=== PATIENT | female | born 1950 | race Caucasian/White ===

== ENCOUNTER 2016-07-07 09:53 | Outpatient (CLI) | payer OTHER | END 2016-07-07 09:54 | disposition home or self-care (01) | DX: E11.65 Type 2 diabetes mellitus with hyperglycemia (principal); Z79.899 Other long term (current) drug therapy ==

== ENCOUNTER 2016-09-09 10:37 | Outpatient (CLI) | payer OTHER | END 2016-09-09 10:38 | disposition home or self-care (01) | DX: Z12.31 Encounter for screening mammogram for malignant neoplasm of breast (principal); Z80.3 Family history of malignant neoplasm of breast ==

== ENCOUNTER 2016-10-19 10:24 | Outpatient (CLI) | payer OTHER ==
[2016-10-19 13:32] LABS: HEMOGLOBIN A1C 0.95 g/dL
== END 2016-10-19 10:25 | disposition home or self-care (01) ==
LOC: LAB.N 10:24
PROVIDERS: ATTEND Physician Assistant Medical
DX: E11.65 Type 2 diabetes mellitus with hyperglycemia (principal); Z79.899 Other long term (current) drug therapy
CPT/HCPCS: 36415; 82947; 83036

== ENCOUNTER 2016-10-28 14:57 | Outpatient (CLI) | payer OTHER ==
[2016-10-28 18:57] LABS: BASOPHILS % (AUTO) 0.4 %; EOSINOPHILS # (AUTO) 0.3 10^3/uL (0.0-0.7); EOSINOPHILS % (AUTO) 3.5 %; HCT - HEMATOCRIT 38.5 % (37.0-47.0); HGB - HEMOGLOBIN 12.9 g/dL (12.0-16.0); LYMPHOCYTES # (AUTO) 3.2 10^3/uL (1.5-3.5); LYMPHOCYTES % (AUTO) 37.9 %; MEAN CORPUSCULAR HEMOGLOBIN 26.8 pg (27.0-31.0); MEAN CORPUSCULAR HGB CONC 33.6 g/dL (32.0-36.0); MEAN PLATELET VOLUME 9.7 fL (7.9-10.8); MONOCYTES # (AUTO) 0.5 10^3/uL (0.0-1.0); NEUTROPHILS # (AUTO) 4.5 10^3/uL (1.5-6.6); NEUTROPHILS % (AUTO) 52.2 %; RED BLOOD COUNT 4.81 10^6/uL (4.20-5.40); UNCORRECTED WHITE BLOOD COUNT 8.6 x10^3/uL; WHITE BLOOD COUNT 8.6 x10^3/uL (4.8-10.8)
[2016-10-28 19:17] LABS: BILIRUBIN,DIRECT 0.1 mg/dL (0.1-0.5); BILIRUBIN,TOTAL 1.1 mg/dL (0.2-1.0); CALCIUM 9.9 mg/dL (8.5-10.3); CREATININE 0.8 mg/dL (0.4-1.0); POTASSIUM 3.6 mmol/L (3.5-5.0); TOTAL PROTEIN 7.7 g/dL (6.7-8.2)
== END 2016-10-28 14:58 | disposition home or self-care (01) ==
LOC: LAB.N 14:57
PROVIDERS: ATTEND Podiatrist
DX: B35.1 Tinea unguium (principal)
CPT/HCPCS: 36415; 80048; 80076; 85025

== ENCOUNTER 2016-10-28 16:14 | Outpatient (CLI) | payer OTHER ==
--- NOTE | 2016-10-29 10:10 | XRAY Report ---
THREE VIEW LEFT SHOULDER: 10/28/2016 CLINICAL INDICATION: Pain. FINDINGS: AP, oblique, and scapular Y views of the left shoulder demonstrate moderate degenerative c hanges of the glenohumeral and acromioclavicular joints. There is no evidence of fracture or dislocat ion. No radiopaque foreign body is seen in the soft tissues. IMPRESSION: MODERATE OSTEOARTHRITIS. JOB #: [id number] EXT JOB #:[id number]
== END 2016-10-28 16:15 | disposition home or self-care (01) ==
LOC: DI 16:14
PROVIDERS: ATTEND Physician Assistant Medical
DX: M19.012 Primary osteoarthritis, left shoulder (principal)
CPT/HCPCS: 36415; 80048; 80076; 85025

== ENCOUNTER 2016-12-21 10:41 | Outpatient (CLI) | payer OTHER ==
[2016-12-21 13:11] LABS: BASOPHILS % (AUTO) 0.5 %; EOSINOPHILS # (AUTO) 0.3 10^3/uL (0.0-0.7); EOSINOPHILS % (AUTO) 3.3 %; HCT - HEMATOCRIT 41.8 % (37.0-47.0); HGB - HEMOGLOBIN 13.7 g/dL (12.0-16.0); LYMPHOCYTES # (AUTO) 2.5 10^3/uL (1.5-3.5); LYMPHOCYTES % (AUTO) 29.9 %; MEAN CORPUSCULAR HEMOGLOBIN 26.3 pg (27.0-31.0); MEAN CORPUSCULAR HGB CONC 32.8 g/dL (32.0-36.0); MEAN CORPUSCULAR VOLUME 80.3 fL (81.0-99.0); MEAN PLATELET VOLUME 9.8 fL (7.9-10.8); MONOCYTES # (AUTO) 0.4 10^3/uL (0.0-1.0); MONOCYTES % (AUTO) 4.9 %; NEUTROPHILS # (AUTO) 5.1 10^3/uL (1.5-6.6); NEUTROPHILS % (AUTO) 61.4 %; RED BLOOD COUNT 5.21 10^6/uL (4.20-5.40); RED CELL DISTRIBUTION WIDTH 15.9 % (12.0-15.0); UNCORRECTED WHITE BLOOD COUNT 8.3 x10^3/uL; WHITE BLOOD COUNT 8.3 x10^3/uL (4.8-10.8)
[2016-12-21 13:24] LABS: BUN - BLOOD UREA NITROGEN 18 mg/dL (6-20); CALCIUM 9.5 mg/dL (8.5-10.3); CARBON DIOXIDE - CO2 27 mmol/L (21-32); CHLORIDE 100 mmol/L (101-111); CREATININE 0.7 mg/dL (0.4-1.0); GFR - MDRD 84 (>89); GLUCOSE 267 mg/dL (70-100); POTASSIUM 4.1 mmol/L (3.5-5.0); SODIUM 136 mmol/L (135-145); TOTAL PROTEIN 7.4 g/dL (6.7-8.2)
[2016-12-21 13:29] LABS: BILIRUBIN,DIRECT < 0.1 mg/dL (0.1-0.5)
== END 2016-12-21 10:42 | disposition home or self-care (01) ==
LOC: LAB.N 10:41
PROVIDERS: ATTEND Podiatrist
DX: B35.1 Tinea unguium (principal)
CPT/HCPCS: 36415; 80048; 80076; 85025

== ENCOUNTER 2017-01-12 09:54 | Outpatient (CLI) | payer OTHER ==
[2017-01-12 13:12] LABS: BASOPHILS % (AUTO) 0.2 %; EOSINOPHILS # (AUTO) 0.3 10^3/uL (0.0-0.7); EOSINOPHILS % (AUTO) 3.4 %; HCT - HEMATOCRIT 41.6 % (37.0-47.0); HGB - HEMOGLOBIN 13.7 g/dL (12.0-16.0); LYMPHOCYTES # (AUTO) 3.2 10^3/uL (1.5-3.5); LYMPHOCYTES % (AUTO) 38.3 %; MEAN CORPUSCULAR HEMOGLOBIN 26.4 pg (27.0-31.0); MEAN CORPUSCULAR HGB CONC 32.9 g/dL (32.0-36.0); MEAN CORPUSCULAR VOLUME 80.3 fL (81.0-99.0); MONOCYTES # (AUTO) 0.4 10^3/uL (0.0-1.0); NEUTROPHILS # (AUTO) 4.4 10^3/uL (1.5-6.6); NEUTROPHILS % (AUTO) 53.1 %; NUCLEATED RED BLOOD CELLS AUTO 0.1 /100WBC; RED BLOOD COUNT 5.17 10^6/uL (4.20-5.40); RED CELL DISTRIBUTION WIDTH 15.6 % (12.0-15.0); UNCORRECTED WHITE BLOOD COUNT 8.3 x10^3/uL; WHITE BLOOD COUNT 8.3 x10^3/uL (4.8-10.8)
[2017-01-12 13:40] LABS: HEMOGLOBIN A1C 1.09 g/dL
[2017-01-12 13:57] LABS: ALBUMIN/GLOBULIN RATIO 1.1 (1.0-2.2); BILIRUBIN,TOTAL 0.8 mg/dL (0.2-1.0); BUN - BLOOD UREA NITROGEN 18 mg/dL (6-20); CALCIUM 9.4 mg/dL (8.5-10.3); CARBON DIOXIDE - CO2 27 mmol/L (21-32); CHLORIDE 101 mmol/L (101-111); CHOL/HDL RATIO 4.2 (<4.4); CHOLESTEROL 160 mg/dL; CREATININE 0.7 mg/dL (0.4-1.0); GFR - MDRD 84 (>89); GLUCOSE 208 mg/dL (70-100); HDL CHOLESTEROL 38 mg/dL; LDL/HDL RATIO 2.4 (<4.4); POTASSIUM 3.9 mmol/L (3.5-5.0); SODIUM 137 mmol/L (135-145); TOTAL PROTEIN 7.6 g/dL (6.7-8.2); TRIGLYCERIDES 162 mg/dL; VLDL CHOLESTEROL 32 mg/dL
== END 2017-01-12 09:55 | disposition home or self-care (01) ==
LOC: LAB.N 09:54
PROVIDERS: ATTEND Physician Assistant Medical
DX: E11.65 Type 2 diabetes mellitus with hyperglycemia (principal); Z72.89 Other problems related to lifestyle; E03.9 Hypothyroidism, unspecified; E78.2 Mixed hyperlipidemia; Z11.59 Encounter for screening for other viral diseases; Z79.899 Other long term (current) drug therapy
CPT/HCPCS: 36415; 80053; 80061; 83036; 84443; 85025; 86803

== ENCOUNTER 2017-03-04 08:00 | Outpatient (CLI) | payer OTHER | END 2017-03-04 08:01 | disposition home or self-care (01) | LOC: LAB.N 08:00 | PROVIDERS: ATTEND Physician Assistant Medical | DX: E03.9 Hypothyroidism, unspecified (principal); Z79.899 Other long term (current) drug therapy | CPT/HCPCS: 36415; 84443 ==

== ENCOUNTER 2017-04-27 08:00 | Outpatient (CLI) | payer OTHER ==
[2017-04-27 20:13] LABS: HEMOGLOBIN A1C 0.76 g/dL
== END 2017-04-27 08:01 | disposition home or self-care (01) ==
LOC: LAB.N 08:00
PROVIDERS: ATTEND Physician Assistant Medical
DX: E11.65 Type 2 diabetes mellitus with hyperglycemia (principal); Z79.899 Other long term (current) drug therapy; E03.9 Hypothyroidism, unspecified
CPT/HCPCS: 36415; 82947; 83036; 84443

== ENCOUNTER 2017-06-18 23:58 | Outpatient (CLI) | payer MEDICARE | END 2017-06-18 23:59 | disposition EMS.NT | LOC: EMS 23:58 | PROVIDERS: ATTEND Surgery | DX: R04.0 Epistaxis (principal) ==

== ENCOUNTER 2017-06-19 01:01 | Emergency (ER) | payer MEDICARE, OTHER ==
[2017-06-19] MEDS ORDERED: TRANEXAMIC ACID 1,000 MG/10 ML VIAL NAS STA (01:15)
[2017-06-19] MEDS ORDERED: OXYMETAZOLINE NASAL SPRAY NAS STA (01:15)
[2017-06-19] MEDS ORDERED: BACITRACIN OINT TOP STA (02:11)
--- NOTE | 2017-06-19 02:12 | ED Physician Documentation ---
PD HPI HEENT - Stated complaint Stated Complaint: NOSEBLEED - Chief complaint Chief Complaint: Heent - History obtained from History obtained from: Patient - History of Present Illness Timing - onset: Today Timing - details: Abrupt onset Location: Nose Similar symptoms before: Has not had sx before Recently seen: Not recently seen - Additional information Additional information: Patient is a 67 year old female who is presenting to the emergency department for nose bleed. patient states that she was blowing her nose and it started to bleed. she applied pressure but he blood proceeded to go up and out of her left eye. patient denies being on any blood thinners or these symptoms in the past. Review of Systems Constitutional: denies: Fever Eyes: reports: Other (blood in left eye) Ears: reports: Reviewed and negative Nose: reports: Epistaxis Throat: reports: Reviewed and negative Cardiac: reports: Reviewed and negative Respiratory: reports: Reviewed and negative GI: denies: Nausea, Vomiting : denies: Hematuria Skin: reports: Reviewed and negative Musculoskeletal: reports: Reviewed and negative Neurologic: denies: Near syncope, Syncope, Altered mental status Immunocompromised: denies: Immunocompromised PD PAST MEDICAL HISTORY - Past Medical History Past Medical History: Yes Cardiovascular: Hypertension, High cholesterol Respiratory: Sleep apnea Endocrine/Autoimmune: Type 2 diabetes, HyPOthyroidism Musculoskeletal: Rheumatoid arthritis - Past Surgical History Past Surgical History: Yes General: Appendectomy Ortho: Knee replacement, 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 Tunnel 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, Hysterectomy, Oophrectomy - Present Medications Home Medications: Ambulatory Orders Medication Instructions Recorded Confirmed Atorvastatin Calcium 40 mg PO DAILY 08/27/16 03/10/17 Cinnamon Bark [Cinnamon] 500 mg PO BID 08/27/16 03/10/17 Cranberry Fruit Extract [Cran-Max] 500 mg PO DAILY 08/27/16 03/10/17 Glipizide 5 mg PO BIDWM 08/27/16 03/10/17 Hydraplenish With Msm 1 tab PO BID 08/27/16 03/10/17 Levothyroxine Sodium [Synthroid] 200 mcg PO DAILY 08/27/16 03/10/17 Licorice Root 450 mg PO DAILY 08/27/16 03/10/17 Losartan [Cozaar] 50 mg PO BID 08/27/16 03/10/17 Lysiine 500 mg PO BID 08/27/16 03/10/17 Malic Acid 1 tab PO BID 08/27/16 03/10/17 Metformin HCl 850 mg PO TID 08/27/16 03/10/17 Methylsulfonylmethane [MSM] 1,000 mg PO BID 08/27/16 03/10/17 Microlactin 240 mg PO DAILY 08/27/16 03/10/17 [place]-3/Dha/Epa/Fish Oil [Fish Oil 1 each PO BID 08/27/16 03/10/17 1,000 mg Softgel] [place] Jelly 1,000 mg PO BID 08/27/16 Ubidecarenone [Co Q-10] 120 mg PO DAILY 08/27/16 08/27/16 amLODIPine [Norvasc] 5 mg PO DAILY 08/27/16 03/10/17 hydroCHLOROthiazide [Hydrodiuril] 25 mg PO DAILY 08/27/16 03/10/17 Insulin NPH Human Isophane 37 unit SQ QPM 10/07/16 03/10/17 [Humulin N] - Allergies Allergies/Adverse Reactions: Allergies Allergy/AdvReac Type Severity Reaction Status Date / Time amoxicillin Allergy Intermediate Rash Verified 06/19/17 01:12 clindamycin Allergy Intermediate Rash Verified 06/19/17 01:11 erythromycin base Allergy Intermediate Rash Verified 06/19/17 01:11 - Social History Does the pt smoke?: No Smoking Status: Never smoker Does the pt drink ETOH?: Yes Does the pt have substance abuse?: No - Immunizations Immunizations are current?: Yes - POLST Patient has POLST: No PD ED PE NORMAL - Vitals Vital signs reviewed: Yes - General General: Alert and oriented X 3, No acute distress - HEENT HEENT: Atraumatic, PERRL, Moist mucous membranes - Neck Neck: Supple, no meningeal sign - Cardiac Cardiac: RRR, No murmur - Respiratory Respiratory: No respiratory distress - Abdomen Abdomen: Soft - Derm Derm: Normal color, No rash - Extremities Extremities: No deformity - Neuro Neuro: Alert and oriented X 3, No motor deficit, Normal speech - Psych Psych: Normal mood PD ED PE EXPANDED - HEENT HEENT: Left nares epistaxis (polyp in left nare, evidence of bleeding but now stopped) Results - Vitals Vitals: Vital Signs - 24 hr 06/19/17 01:07 Temperature 63.1 C H Heart Rate 99 Respiratory 20 Rate Blood Pressure 176/80 H O2 Saturation 98 Oxygen O2 Source Room air PD MEDICAL DECISION MAKING - ED course Complexity details: reviewed old records, reviewed results, re-evaluated patient , considered differential, d/w patient, d/w family ED course: patient was seen and examined at bedside. Patient had been applying pressure. the nose clamp was removed and patient blew her nose. there was a polyp but the bleeding had stopped. AFrin was applied as well as bacitracin. Patient's bleeding was controlled and patient required no further work up and was stable for discharge with outpatient follow up. Departure - Departure Disposition: 01 Home, Self Care Clinical Impression: Epistaxis not due to trauma Condition: Good Instructions: ED Nosebleed Follow-Up: Terra Chand PA-C [Primary Care Provider] - Comments: You have a polyp in your nose which could have been the culprit for the bleed. You should keep your nares moist with vasaline or similar product. If you get bleeding again you can use afrin and apply pressure. You should follow up with your doctor if these symptoms become more frequent or last for a longer duration.
[2017-06-19 02:23] VITALS: BP 162/95
== END 2017-06-19 02:23 | disposition home or self-care (01) ==
LOC: ED 01:01
DX: R04.0 Epistaxis (principal); J33.9 Nasal polyp, unspecified; I10 Essential (primary) hypertension; E78.00 Pure hypercholesterolemia, unspecified; E03.9 Hypothyroidism, unspecified; E11.9 Type 2 diabetes mellitus without complications; Z79.4 Long term (current) use of insulin; Z96.659 Presence of unspecified artificial knee joint
CPT/HCPCS: 99282; 99283; A9270

== ENCOUNTER 2017-07-06 16:54 | Emergency (ER) | payer MEDICARE ==
--- NOTE | 2017-07-06 18:06 | ED Physician Documentation ---
History of Present Illness - Stated complaint Stated Complaint: NOSE BLEED - Chief complaint Chief Complaint: Heent - History obtained from History obtained from: Patient, Family - History of Present Illness Timing: Today, How many minutes ago (20) Pain level max: 0 Pain level now: 0 Improved by: holding pressure Worsened by: nothing - Additonal information Additional information: bleeding from L nare. Has not seen ENT yet. Seen here recently for same. Review of Systems Constitutional: denies: Fever Nose: denies: Rhinorrhea / runny nose, Congestion, Sinus pressure / pain, Foreign Body Throat: denies: Sore throat Cardiac: denies: Chest pain / pressure Respiratory: denies: Cough GI: denies: Abdominal Pain, Vomiting, Diarrhea Skin: denies: Rash PD PAST MEDICAL HISTORY - Past Medical History Cardiovascular: Hypertension, High cholesterol Respiratory: Sleep apnea Endocrine/Autoimmune: Type 2 diabetes, HyPOthyroidism Musculoskeletal: Rheumatoid arthritis - Past Surgical History Past Surgical History: Yes General: Appendectomy Ortho: Knee replacement, 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, Hysterectomy, Oophrectomy - Present Medications Home Medications: Ambulatory Orders Medication Instructions Recorded Confirmed Atorvastatin Calcium 40 mg PO DAILY 08/27/16 03/10/17 Cinnamon Bark [Cinnamon] 500 mg PO BID 08/27/16 03/10/17 Cranberry Fruit Extract [Cran-Max] 500 mg PO DAILY 08/27/16 03/10/17 Glipizide 5 mg PO BIDWM 08/27/16 03/10/17 Hydraplenish With Msm 1 tab PO BID 08/27/16 03/10/17 Levothyroxine Sodium [Synthroid] 200 mcg PO DAILY 08/27/16 03/10/17 Licorice Root 450 mg PO DAILY 08/27/16 03/10/17 Losartan [Cozaar] 50 mg PO BID 08/27/16 03/10/17 Lysiine 500 mg PO BID 08/27/16 03/10/17 Malic Acid 1 tab PO BID 08/27/16 03/10/17 Metformin HCl 850 mg PO TID 08/27/16 03/10/17 Methylsulfonylmethane [MSM] 1,000 mg PO BID 08/27/16 03/10/17 Microlactin 240 mg PO DAILY 08/27/16 03/10/17 [place]-3/Dha/Epa/Fish Oil [Fish Oil 1 each PO BID 08/27/16 03/10/17 1,000 mg Softgel] [place] Jelly 1,000 mg PO BID 08/27/16 Ubidecarenone [Co Q-10] 120 mg PO DAILY 08/27/16 08/27/16 amLODIPine [Norvasc] 5 mg PO DAILY 08/27/16 03/10/17 hydroCHLOROthiazide [Hydrodiuril] 25 mg PO DAILY 08/27/16 03/10/17 Insulin NPH Human Isophane 37 unit SQ QPM 10/07/16 03/10/17 [Humulin N] - Allergies Allergies/Adverse Reactions: Allergies Allergy/AdvReac Type Severity Reaction Status Date / Time amoxicillin Allergy Intermediate Rash Verified 07/06/17 17:01 clindamycin Allergy Intermediate Rash Verified 07/06/17 17:01 erythromycin base Allergy Intermediate Rash Verified 07/06/17 17:01 - Social History Does the pt smoke?: No Smoking Status: Never smoker Does the pt drink ETOH?: Yes Does the pt have substance abuse?: No - Immunizations Immunizations are current?: Yes - POLST Patient has POLST: No PD ED PE NORMAL - Vitals Vital signs reviewed: Yes - General General: Alert and oriented X 3, No acute distress - HEENT HEENT: Moist mucous membranes, Other (R nare slight dried blood. L nare - dried blood and clot in place. no active bleeding) - Neck Neck: Supple, no meningeal sign - Cardiac Cardiac: RRR, Strong equal pulses - Respiratory Respiratory: No respiratory distress, Clear bilaterally - Derm Derm: Warm and dry - Neuro Neuro: Alert and oriented X 3 Results - Vitals Vitals: Vital Signs - 24 hr 07/06/17 07/06/17 16:58 19:17 Temperature 36.6 C 36.5 C Heart Rate 111 H 94 Respiratory 16 18 Rate Blood Pressure 179/109 H 161/81 H O2 Saturation 97 95 Oxygen O2 Source Room air PD MEDICAL DECISION MAKING - ED course Complexity details: reviewed old records, re-evaluated patient, considered differential, d/w patient, d/w family ED course: Patient with epistaxis to the L nare. no active bleeding. Patient brought in her own afrin, 2 sprays applied. No further bleeding. Will follow up with ENT as previously planned. Patient and family counseled regarding signs and symptoms for which I believe and urgent re-evaluation would be necessary. Patient with good understanding of and agreement to plan and is comfortable going home at this time This document was made in part using voice recognition software. While efforts are made to proofread this document, sound alike and grammatical errors may occur. Departure - Departure Disposition: 01 Home, Self Care Clinical Impression: Epistaxis Condition: Good Instructions: ED Nosebleed Follow-Up: Terra Chand PA-C [Primary Care Provider] - Within 1 week Comments: Use the afrin twice daily for 2 days. Return if you worsen. Otherwise follow up with ENT as scheduled. Discharge Date/Time: 07/06/17 19:25
[2017-07-06 19:18] VITALS: BP 161/81
== END 2017-07-06 19:25 | disposition home or self-care (01) ==
LOC: ED 16:54
DX: R04.0 Epistaxis (principal); I10 Essential (primary) hypertension; E78.00 Pure hypercholesterolemia, unspecified; E03.9 Hypothyroidism, unspecified; E11.9 Type 2 diabetes mellitus without complications; Z79.4 Long term (current) use of insulin
CPT/HCPCS: 99282; 99283

== ENCOUNTER 2017-08-27 11:10 | Outpatient (CLI) | payer MEDICARE | END 2017-08-27 11:11 | disposition critical access hospital (66) | LOC: EMS 11:10 | PROVIDERS: ATTEND Surgery | DX: R47.9 Unspecified speech disturbances (principal); R53.1 Weakness | CPT/HCPCS: A0425; A0427 ==

== ENCOUNTER 2017-08-27 11:45 | Observation (INO) | payer MEDICARE ==
--- NOTE | 2017-08-27 11:46 | ED Physician Documentation ---
PD HPI FOCAL NEURO - Stated complaint Stated Complaint: POSS CVA - History obtained from History obtained from: Patient - History of Present Illness Timing - onset: Last night (went to bed around 8 pm and awoke at midnight to go to bathroom or such, noted fumbling with right hand and dribbled when she drank. Went back to bed and felt symptoms still this morning. Then noted trouble speaking when talked with family member on phone. No injury nor headache.) Timing - duration: Hours (12) Timing - details: Abrupt onset, Still present Severity of deficit: Moderate Weakness: Face, Arm, Hand, Right. No: Leg Numbness: Arm, Hand, Right. No: Leg Associated symptoms: Other (trouble articulating). No: Headache, Nausea / vomiting Contributing factors: negative: Anticoagulated, Vascular dz, Atrial fibrillation Baseline status: positive: A&OX3, ambulatory, indep Similar symptoms before: Has not had sx before Recently seen: Not recently seen Review of Systems Constitutional: denies: Fever, Chills, Myalgias Nose: denies: Rhinorrhea / runny nose, Congestion Throat: denies: Sore throat Cardiac: denies: Chest pain / pressure, Palpitations Respiratory: denies: Dyspnea, Cough GI: denies: Abdominal Pain, Abdominal Swelling, Nausea, Vomiting Skin: denies: Rash, Lesions Neurologic: reports: Focal weakness, Difficulty speaking. 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, Oophrectomy - Present Medications Home Medications: Ambulatory Orders Medication Instructions Recorded Confirmed Atorvastatin Calcium 40 mg PO QPM 08/27/16 08/27/17 Cinnamon Bark [Cinnamon] 500 mg PO DAILY 08/27/16 08/27/17 Cranberry Fruit Extract [Cran-Max] 120 mg PO DAILY 08/27/16 08/27/17 Glipizide 5 mg PO 0730 08/27/16 08/27/17 Hydraplenish With Msm 1 tab PO BID 08/27/16 08/27/17 Levothyroxine Sodium [Synthroid] 200 mcg PO MOTUWETHFR@0730 08/27/16 08/27/17 Licorice Root 450 mg PO DAILY 08/27/16 08/27/17 Lysiine 500 mg PO BID 08/27/16 08/27/17 Malic Acid 1 tab PO BID 08/27/16 08/27/17 Metformin HCl 850 mg PO TIDWM 08/27/16 08/27/17 Microlactin 240 mg PO BID 08/27/16 08/27/17 [place] Jelly 2,000 mg PO DAILY 08/27/16 08/27/17 Ubidecarenone [Co Q-10] 120 mg PO DAILY 08/27/16 08/27/17 amLODIPine [Norvasc] 5 mg PO DAILY 08/27/16 08/27/17 hydroCHLOROthiazide [Hydrodiuril] 25 mg PO DAILY 08/27/16 08/27/17 Insulin NPH Human Isophane 40 - 55 unit SQ QPM 10/07/16 08/27/17 [Humulin N] Albuterol Sulf [Ventolin Hfa 2 puffs INH Q4H PRN 08/27/17 08/27/17 Inhaler] Levothyroxine Sodium 100 mcg PO SA@0730 08/27/17 08/27/17 Losartan Potassium 100 mg PO DAILY 08/27/17 08/27/17 [place]-3 Acid Ethyl Esters [Lovaza] 1 gm PO BID 08/27/17 08/27/17 - Allergies Allergies/Adverse Reactions: Allergies Allergy/AdvReac Type Severity Reaction Status Date / Time amoxicillin Allergy Intermediate Rash Verified 08/27/17 12:01 clindamycin Allergy Intermediate Rash Verified 08/27/17 12:01 erythromycin base Allergy Intermediate Rash Verified 08/27/17 12:01 - Social History Does the pt smoke?: No Smoking Status: Never smoker Does the pt drink ETOH?: Yes Does the pt have substance abuse?: No - Family History Family history: reports: Non contributory. denies: DM, CVA - Immunizations Immunizations are current?: Yes - POLST Patient has POLST: No PD ED PE NORMAL - Vitals Vital signs reviewed: Yes - General General: Alert and oriented X 3, No acute distress, Well developed/nourished - HEENT HEENT: Pharynx benign - Neck Neck: Supple, no meningeal sign, No adenopathy - Cardiac Cardiac: RRR, No murmur - Respiratory Respiratory: Clear bilaterally - Abdomen Abdomen: Soft, Non tender - Back Back: No CVA TTP - Derm Derm: Normal color, Warm and dry - Extremities Extremities: No deformity, No tenderness to palpate, Normal ROM s pain, No edema , No calf tenderness / cord - Neuro Neuro: Alert and oriented X 3, Other (right arm with slight weakness and drift. ). No: intern brand 2-12 intact (right facial droop), Normal speech (some dyarthria but the content is normal/understandable. ) Eye Opening: Spontaneous Motor: Obeys Commands Verbal: Oriented GCS Score: 15 NIHSS - Level of Consciousness Level of consciousness: (0) Alert, Keenly responsive LOC Questions: (0) Answers both Q's correct LOC Commands: (0) Performs both correctly - Gaze Best Gaze: (0) Normal - Visual Visual: (0) No loss - Facial Palsy Facial Palsy: (1) Minor paralysis - Motor Arms (both separate) Motor Arm (right): (1) Drift Motor Arm (left): (0) No drift - Motor Legs (both separate) Motor Leg (right): (0) No drift Motor Leg (left): (0) No drift - Limb Ataxia Limb Ataxia: (0) Absent - Sensory Sensory: (0) Normal - Best Language Best Language: (0) No aphasia - Dysarthria Dysarthria: (1) [id number] dysarthria - Extinction and Inattention (formally neg Extinction and inattention: (0) No abnormality - Total Score/Results Total Score/Result: 3 Results - Vitals Vitals: Vital Signs - 24 hr 08/27/17 08/27/17 11:57 13:16 Temperature 36.6 C Heart Rate 76 81 Respiratory 21 15 Rate Blood Pressure 183/104 H 172/89 H O2 Saturation 97 95 Oxygen O2 Source Room air - Labs Labs: Laboratory Tests 08/27/17 08/27/17 12:00 12:00 WBC 7.3 RBC 5.01 Hgb 12.7 Hct 38.1 MCV 75.9 L MCH 25.2 L MCHC 33.2 RDW 16.9 H Plt Count 214 MPV 8.3 Neut # 4.9 Lymph # 1.8 [place] # 0.3 Eos # 0.2 Baso # 0.1 Absolute Nucleated RBC 0.00 Nucleated RBC % 0.0 Sodium 132 L Potassium 4.2 Chloride 94 L Carbon Dioxide 28 Anion Gap 10.0 BUN 16 Creatinine 0.7 Estimated GFR (MDRD) 84 L Glucose 311 H Calcium 9.5 Magnesium 1.9 Total Bilirubin 0.9 AST 25 ALT 34 Alkaline Phosphatase 131 H Total Protein 8.2 Albumin 4.3 Globulin 3.9 Albumin/Globulin Ratio 1.1 Lipase 18 L - Rads (name of study) head CT Radiology: Prelim report reviewed (left basal ganglia hypodensity c/w early stroke. ) PD MEDICAL DECISION MAKING - ED course Complexity details: reviewed results, re-evaluated patient, considered differential, d/w patient, d/w store sales consultant (Neurology at [facility], who said not candidate for intervention (TPA nor embolectomy). No need to transfer. ) Departure - Departure Disposition: ED Place in Observation Clinical Impression: Basal ganglia infarction Cerebrovascular accident (CVA) Qualifiers: CVA mechanism: unspecified Qualified Code(s): I63.9 - Cerebral infarction, unspecified Condition: Stable Record reviewed to determine appropriate education?: Yes Discharge Date/Time: 08/27/17 14:05
[2017-08-27] MEDS ORDERED: SODIUM CHLORIDE 0.9% 1,000 ML IV ONE (12:00)
[2017-08-27 12:07] LABS: BASOPHILS # (AUTO) 0.1 10^3/uL (0.0-0.1); BASOPHILS % (AUTO) 0.9 %; EOSINOPHILS # (AUTO) 0.2 10^3/uL (0.0-0.7); EOSINOPHILS % (AUTO) 3.2 %; HGB - HEMOGLOBIN 12.7 g/dL (12.0-16.0); LYMPHOCYTES # (AUTO) 1.8 10^3/uL (1.5-3.5); LYMPHOCYTES % (AUTO) 24.6 %; MEAN CORPUSCULAR HEMOGLOBIN 25.2 pg (27.0-31.0); MEAN CORPUSCULAR HGB CONC 33.2 g/dL (32.0-36.0); MEAN CORPUSCULAR VOLUME 75.9 fL (81.0-99.0); MEAN PLATELET VOLUME 8.3 fL (7.9-10.8); MONOCYTES # (AUTO) 0.3 10^3/uL (0.0-1.0); MONOCYTES % (AUTO) 4.6 %; NEUTROPHILS # (AUTO) 4.9 10^3/uL (1.5-6.6); NEUTROPHILS % (AUTO) 66.7 %; PLT - PLATELET COUNT 214 10^3/uL (130-450); RED BLOOD COUNT 5.01 10^6/uL (4.20-5.40); RED CELL DISTRIBUTION WIDTH 16.9 % (12.0-15.0); WHITE BLOOD COUNT 7.3 x10^3/uL (4.8-10.8)
[2017-08-27] MEDS ORDERED: IOPAMIDOL-300 100 ML VIAL ONE (12:10)
[2017-08-27 12:16] LABS: ALBUMIN 4.3 g/dL (3.2-5.5); ALBUMIN/GLOBULIN RATIO 1.1 (1.0-2.2); BILIRUBIN,TOTAL 0.9 mg/dL (0.2-1.0); CALCIUM 9.5 mg/dL (8.5-10.3); CREATININE 0.7 mg/dL (0.4-1.0); MAGNESIUM 1.9 mg/dL (1.7-2.8); TOTAL PROTEIN 8.2 g/dL (6.7-8.2)
[2017-08-27] MEDS ORDERED: ASPIRIN CHEW 81 MG TABLET PO STA (12:17)
[2017-08-27] MEDS ORDERED: IOPAMIDOL-300 100 ML VIAL IVP ONE ×2 (12:24)
--- NOTE | 2017-08-27 12:36 | CT Preliminary Report ---
Exam: CT HEAD W/O STROKE PROTOCOL IMPRESSION: Subtle hypodensity at the left basal ganglia may reflect acute infarct. MRI could be cons idered for further evaluation. Paranasal sinus disease. RADIA The call report notification system was initiated by Dr. Torito Handley at 12:28 hrs on 08/27/17. The above findings were discussed with Dr. aL by Dr. Torito Handley at 12:34 hrs on 08/27/17. SITE ID: [id number]
--- NOTE | 2017-08-27 12:36 | CT Report ---
EXAM: CT HEAD EXAM DATE: 08/27/2017 12:18 PM. CLINICAL HISTORY: Right arm/face weakness since last night. COMPARISON: None. TECHNIQUE: Multiaxial CT images were obtained from the foramen magnum to the vertex. Reformats: Coron al. IV contrast: None. In accordance with CT protocol optimization, one or more of the following dose reduction techniques w ere utilized for this exam: automated exposure control, adjustment of mA and/or KV based on patient s ize, or use of iterative reconstructive technique. FINDINGS: Parenchyma: No intraparenchymal hemorrhage. No evidence of mass or midline shift. There is subtle hyp odensity at the left basal ganglia, possibly reflecting acute lacunar infarct. Otherwise no evidence of acute infarct. [place]-white differentiation is otherwise intact. There is mild patchy periventricula r white matter hypodensity, nonspecific but suggestive of chronic microvascular ischemic change. Extraaxial Spaces: Normal for age. No subdural or epidural collections identified. Ventricles: Normal in size and position. Sinuses and Orbits: Bilateral maxillary sinus fluid levels and mild mucosal thickening. Partially opa cified ethmoid air cells. Bones: No evidence of fracture or calvarial defect. Other: None. IMPRESSION: Subtle hypodensity at the left basal ganglia may reflect acute infarct. MRI could be cons idered for further evaluation. Paranasal sinus disease. RADIA The call report notification system was initiated by Dr. Torito Handley at 12:28 hrs on 08/27/17. The above findings were discussed with Dr. La by Dr. Torito Handley at 12:34 hrs on 08/27/17. Referring Provider Line: [phone] SITE ID: [id number]
[2017-08-27] MEDS ORDERED: SODIUM CHLORIDE FLUSH 0.9% 10 ML SYRINGE IVP PRN (13:29)
--- NOTE | 2017-08-27 13:48 | CT Preliminary Report ---
Exam: CT HEAD ANGIO Impression: Unremarkable intracranial CT angiogram. In particular, no evidence of occlusion or hemodynamically significant stenosis affecting main branch es of the anterior or posterior circulations. SITE ID: [id number]
--- NOTE | 2017-08-27 14:00 | CT Preliminary Report ---
Exam: CT NECK ANGIO Impression: 1. Normal appearance of the extra cranial left carotid artery. 2. Very poor assessment of the proximal vertebral arteries and proximal right common carotid artery d ue to artifact. The possibility of stenosis cannot be excluded. However, the vertebral arteries and r ight carotid artery are much better visualized in the mid and upper neck and no pathology is demonstr ated. SITE ID: [id number]
--- NOTE | 2017-08-27 15:18 | HISTORY & PHYSICAL EXAMINATION ---
Chief Complaint - Chief Complaint Chief Complaint: right sided weakness History of Present Illness - Admitted From Admitted From:: ED - History Obtained From Records Reviewed: yes History obtained from: chart review, patient Exam Limitations: speech - History of Present Illness HPI Comment/Other: Zhen Hudson is a morbidly obese 67 year old white female with a past medical history of insulin dependent DM type 2, hypothyroidism, rheumatoid arthritis, suspected sleep apnea, hypertension, hyperlipidemia, and urinary stress incontinence. She states that she went to bed last night around 8 pm and fell asleep in the chair as she has been suffering with a URI, so lying flat is uncomfortable. She woke up at 12midnight with mild ataxia, right arm weakness, and noticed dribbling as she drank. She was home alone as her took a trip to [place] to visit family, so she ended up falling back asleep. When she awoke this AM, she felt similar symptoms, so phoned family who soon "face-timed " her. She was noted to have a right facial droop, profound expressive aphasia , and right sided weakness. Once in the ED preliminary CT stroke protocol scans showed subtle hypodensity at the left ganglia that may reflect acute infarct, MRI is recommended. This finding does coincide with clinical picture. No lab findings were found to be concerning. The patient denies chest pain, N /V, SOB, hallucinations, or vision/hearing changes. She admits to extra stress lately related to disagreements with her eldest son, but otherwise leads a low stress environment and states that she has a supportive . She will be admitted for further work up for suspected CVA to our observation. An echocardiogram, MRI stat, and telemetry monitoring will be ordered. History - Past Medical History Cardiovascular: reports: Hypertension, High cholesterol, Atrial fibrillation ( history of a-fib, now post cardiac ablation) Respiratory: reports: Sleep apnea (no offical diagnosis, but patient admits to snoring and daytime sleepiness.) Neuro: reports: None Endocrine/Autoimmune: reports: Type 2 diabetes (insulin dependent), HyPOthyroidism GI: reports: None DELICATESSEN CLERK: reports: Other (uterine bleeding- status post hysterectomy ~age 42.) : reports: Incontinence (stress) HEENT: reports: Chronic vision loss Psych: reports: Depression, Anxiety Musculoskeletal: reports: Rheumatoid arthritis Derm: reports: None MRSA Hx?: No - Past Surgical History General: reports: Appendectomy Ortho: reports: Knee replacement, Carpal Tunnel surgery /DELICATESSEN CLERK: reports: section, Hysterectomy, Oophrectomy Cardiovascular: reports: Other (cardiac ablation for chronic atrial fibrillation ) - Family & Social History Family History: Mother: , Cancer, Father: , CAD, Sister: Alive and Well, Mental Illness, Brother: , Mental Illness Family History Comment/Other: The patient's mother from breast cancer, father of heart disease, brother hung himself after him and had substance abuse issues. She has 2 living sister, one of which is well, the other with mental illness/substance abuse issues, osteoarthritis. Living arrangement: At home Living Situation: With spouse/s.o. Social History Notes: The patient is to José Antonio for the past 10 years. This is her second marriage. She has 2 grown sons and raised them in the [facility]. 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 She denies tobacco, alcohol, or illicit drug use. She wishes to be a FULL code. - Substance History Use: Uses substance without health or social issues: NONE Abuse: Recurrent use of substance despite neg consequences: NONE Dependence: Experiences withdrawal or developed tolerances: NONE - POLST Patient has POLST: No POLST Status: Full Code Meds/Allgy - Home Medications Home Medications: Ambulatory Orders Medication Instructions Recorded Confirmed Atorvastatin Calcium 40 mg PO QPM 08/27/16 08/27/17 Cinnamon Bark [Cinnamon] 500 mg PO DAILY 08/27/16 08/27/17 Cranberry Fruit Extract [Cran-Max] 120 mg PO DAILY 08/27/16 08/27/17 Glipizide 5 mg PO 0730 08/27/16 08/27/17 Hydraplenish With Msm 1 tab PO BID 08/27/16 08/27/17 Levothyroxine Sodium [Synthroid] 200 mcg PO MOTUWETHFR@0730 08/27/16 08/27/17 Licorice Root 450 mg PO DAILY 08/27/16 08/27/17 Lysiine 500 mg PO BID 08/27/16 08/27/17 Malic Acid 1 tab PO BID 08/27/16 08/27/17 Metformin HCl 850 mg PO TIDWM 08/27/16 08/27/17 Microlactin 240 mg PO BID 08/27/16 08/27/17 Almond Jelly 2,000 mg PO DAILY 08/27/16 08/27/17 Ubidecarenone [Co Q-10] 120 mg PO DAILY 08/27/16 08/27/17 amLODIPine [Norvasc] 5 mg PO DAILY 08/27/16 08/27/17 hydroCHLOROthiazide [Hydrodiuril] 25 mg PO DAILY 08/27/16 08/27/17 Insulin NPH Human Isophane 40 - 55 unit SQ QPM 10/07/16 08/27/17 [Humulin N] Albuterol Sulf [Ventolin Hfa 2 puffs INH Q4H PRN 08/27/17 08/27/17 Inhaler] Levothyroxine Sodium 100 mcg PO SA@0730 08/27/17 08/27/17 Losartan Potassium 100 mg PO DAILY 08/27/17 08/27/17 [place]-3 Acid Ethyl Esters [Lovaza] 1 gm PO BID 08/27/17 08/27/17 - Allergies Allergies/Adverse Reactions: Allergies Allergy/AdvReac Type Severity Reaction Status Date / Time amoxicillin Allergy Intermediate Rash Verified 08/27/17 12:01 clindamycin Allergy Intermediate Rash Verified 08/27/17 12:01 erythromycin base Allergy Intermediate Rash Verified 08/27/17 12:01 Review of Systems - Constitutional Constitutional: reports: Fatigue, Weakness, Poor appetite, Weight gain (15 lbs in the past several months d/t increased stress.) - Eyes Eyes: reports: Corrective lenses - Ears, Nose & Throat Ears, Nose & Throat: reports: Nasal congestion, Postnasal drainage. denies: Nasal discharge - Cardiovascular Cariovascular: reports: Orthopnea. denies: Irregular heart rate, Palpitations - Respiratory Respiratory: reports: Orthopnea. denies: Cough, Sputum production - Gastrointestinal Gastrointestinal: denies: Abdominal pain - Genitourinary Genitourinary: reports: Incontinence (stress). denies: Dysuria, Frequency - Musculoskeletal Musculoskeletal: reports: Joint swelling. denies: Muscle pain, Back pain, Muscle aches - Integumentary Integumentary: reports: Dryness. denies: Rash, Pruritis, Lesions - Neurological Neurological: reports: General weakness, Pre-existing deficit - Psychiatric Psychiatric: reports: Depression, Anxiety - Endocrine Endocrine: denies: Polyuria, Polydypsia - Hematologic/Lymphatic Hematologic/Lymphatic: reports: Recurrent infections - All Other Systems All Other Systems: reports: Reviewed and negative Exam - Vital Signs Reviewed Vital Signs: Yes Vital Signs: Vital Signs x48h Temp Pulse Resp BP Pulse Ox 08/27/17 14:30 36.9 C 81 20 211/82 H 96 - Physical Exam General Appearance: positive: No acute distress, Alert, Mild distress Eyes Bilateral: positive: Normal inspection ENT: positive: ENT inspection nml, Pharyngeal erythema, Dry mucous membranes Neck: positive: No JVD, Trachea midline Respiratory: positive: Chest non-tender, No respiratory distress, Breath sounds nml Cardiovascular: positive: Regular rate & rhythm, No gallop Peripheral Pulses: positive: 2+ Abdomen: positive: Non-tender, No organomegaly, Nml bowel sounds, Other (obese, soft) Back: positive: Nml inspection Skin: positive: No rash, Warm, Dry Extremities: positive: Non-tender, Full ROM, Nml appearance, Pedal edema (mild, BLE) Neurologic/Psychiatric: positive: Oriented x3, Weakness, Sensory loss, Facial droop, Slurred/abnml speech, Depressed mood/affect Reflexes: Bicep (R): 2+, Bicep (L): 3+, Ankle (R): 3+, Ankle (L): 3+ Conclusion/Plan - Problem List (1) Cerebrovascular accident (CVA) Conclusion/Plan: A CVA is suspected upon presentation to ED based on physical exam findings, and preliminary CT results. The patient is noted to have right sided weakness with profound expressive aphasia with an unknown "last well" time due to patient's explanation of onset of symptoms. Her recollection was that she fell asleep in her recliner, and awoke at 12midnight with her first symptoms, but fell back asleep until this AM. Plan: Admit patient to observation unit and patient will undergo usual CVA work up including a bedside echocardiogram with bubble study, MRI of brain, and PT/OT/speech with medication adjustments. Qualifiers: CVA mechanism: unspecified Qualified Code(s): I63.9 - Cerebral infarction, unspecified (2) Basal ganglia infarction Conclusion/Plan: As per CT report, the patient is noted to have an acute basal ganglia infarction. The patient has 2 prominent directly related risk factors which include potentially uncontrolled hypertension and diabetes mellitus. Plan: Continue observation work up. (3) Right sided weakness Conclusion/Plan: The patient reports mild ataxia at home that has nearly resolved upon admission exam. She is equal in strength and sensation of BLE, and only mildly deficient in RUE. She does not demonstrate drift with any extremities, but when asked to shrug shoulders, her right shoulder does not go as high as her left. Plan: Perform serial neuro checks as per protocol CVA work up and expect improvement with time. Consider PT/OT/speech. (4) Expressive aphasia Conclusion/Plan: The patient demonstrates frustration when being questioned during intake admission exam. She also is found to be tearful when speaking about her recent stress in relation to her eldest son as they are "fighting right now". She also has a mild right facial droop. When given adequate time, she comes up with correct terminology eventually. Plan: Continue to monitor and watch for potential aspiration. (5) Hypertension Conclusion/Plan: The patient has a known history of this and this is managed by PCP, Terra GARCIA. She is prescribed Losartan, amlodipin, and HCTZ at home. Patient is noted to be hypertensive upon arrival to the ED with SBP's in the 180-200's. Patient denies headaches or blurred vision. Plan: Continue to hold usual home medications as it is ideal to passively allow blood pressure to be elevated. We will continue to monitor vital signs. Qualifiers: Hypertension type: essential hypertension Qualified Code(s): I10 - Essential (primary) hypertension (6) Insulin dependent type 2 diabetes mellitus Conclusion/Plan: The patient admits to DM for the past ~20 years. She is now insulin dependent and is prescribed several agents at home including; metformin, glipizide, and NPH. She states that her sugars have been greater than 200 for quite some time due to stress and recent URI. Plan: Check HgA1C in AM and hold oral agents as per hospital protocol. Continue SSI at [facility], Lantus, and blood sugar checks. - Lab Results Lab results reviewed: Yes Fish Bones: 08/27/17 12:00 08/27/17 12:00 - Diagnostic Imaging Results Diagnostic Imaging Results: positive: Prelim report reviewed, Final report reviewed Diagnostic Imaging Results Comments: EXAM: CT HEAD EXAM DATE: 08/27/2017 12:18 PM. CLINICAL HISTORY: Right arm/face weakness since last night. COMPARISON: None. TECHNIQUE: Multiaxial CT images were obtained from the foramen magnum to the vertex. Reformats: Coronal. IV contrast: None. In accordance with CT protocol optimization, one or more of the following dose reduction techniques were utilized for this exam: automated exposure control, adjustment of mA and/or KV based on patient size, or use of iterative reconstructive technique. FINDINGS: Parenchyma: No intraparenchymal hemorrhage. No evidence of mass or midline shift. There is subtle hypodensity at the left basal ganglia, possibly reflecting acute lacunar infarct. Otherwise no evidence of acute infarct. [place]- white differentiation is otherwise intact. There is mild patchy periventricular white matter hypodensity, nonspecific but suggestive of chronic microvascular ischemic change. Extraaxial Spaces: Normal for age. No subdural or epidural collections identified. Ventricles: Normal in size and position. Sinuses and Orbits: Bilateral maxillary sinus fluid levels and mild mucosal thickening. Partially opacified ethmoid air cells. Bones: No evidence of fracture or calvarial defect. Other: None. IMPRESSION: Subtle hypodensity at the left basal ganglia may reflect acute infarct. MRI could be considered for further evaluation. Paranasal sinus disease. CT ANGIOGRAM NECK INDICATION: 67-year-old female with right face and arm weakness since last night. Concern for acute CVA. Please assess. TECHNIQUE: 80 mL of Isovue-300 contrast were injected at a rapid rate through a large bore, right antecubital intravenous catheter. The neck was scanned helically during arterial phase. Data was reconstructed into 0.5 mm axial images. In addition, MIP reconstructions have been generated in multiple projections to allow better assessment of the extracranial carotid and vertebral arteries. Significant arterial stenoses will be assessed using NASCET type measurements. In accordance with CT protocol optimization, one or more of the following dose reduction techniques were utilized for this exam: automated exposure control, adjustment of mA and/or KV based on patient size, or use of iterative reconstructive technique. COMPARISON: None. FINDINGS: There is normal branching of the aortic arch. No stenoses are identified in the first-order, supraaortic arteries. Right Carotid Artery: The proximal common carotid artery is partially obscured due to artifact from patient motion and due to beam hardening artifact from dense contrast in the right subclavian vein. The middle and distal thirds are better seen and appear widely patent. No stenosis at the carotid bifurcation. The extracranial ICA is widely patent throughout. Left Carotid Artery: Normal. Right Vertebral Artery: This is the dominant vertebral artery in this individual. The origin and proximal/mid V1 segment are partially obscured due to beam hardening artifact. Pathology is demonstrated. The V2 and V3 segments are well seen and appear patent throughout. Left Vertebral Artery: Mildly hypoplastic. The origin and proximal V1 segment are poorly assessed due to artifact. The possibility of stenosis cannot be excluded. Mid and distal V1 segment are better seen and appear patent. The V2 and V3 segments appear patent. Of note, there are numerous lymph nodes in the anterior and posterior triangles of the neck. None of these appear to meet the size criterion for malignancy and all appear well-defined and homogeneous. However, the number of lymph nodes is unusual for a patient of this age. IMPRESSION: 1. Normal appearance of the extracranial left carotid artery. 2. Very poor assessment of the proximal vertebral arteries and proximal right common carotid artery due to artifact. The possibility of stenosis cannot be excluded. However, the vertebral arteries and right carotid artery are much better visualized in the mid and upper neck and no pathology is demonstrated. CT ANGIOGRAM HEAD AND POSTCONTRAST HEAD CT INDICATION: 67-year-old female with right arm and face weakness since last night. Concern for possible CVA. Please assess. TECHNIQUE: CT Angiogram Head: 80 mL of Isovue-300 contrast were injected at a rapid rate through a large bore, right antecubital intravenous catheter. The head was scanned helically during arterial phase. Data was reconstructed into 0.5 mm axial images. In addition, MIP reconstructions have been generated in multiple projections to allow better assessment of the intracranial arteries. Postcontrast Head CT: Sequential 5 mm axial images were obtained through the brain following the CT angiogram. In accordance with CT protocol optimization, one or more of the following dose reduction techniques were utilized for this exam: automated exposure control, adjustment of mA and/or KV based on patient size, or use of iterative reconstructive technique. COMPARISON: None. FINDINGS: CT Angiogram Head: Anterior Circulation: There is calcified plaque scattered throughout the carotid siphons without significant associated ICA stenosis. No ICA aneurysm is identified. The A1 segments of the anterior cerebral arteries are codominant. No anterior communicating artery is identified. There appears to be filling of A2 and distal NESTOR branches. No obvious NESTOR branch occlusion is identified. The middle cerebral arteries are unremarkable. No aneurysm is demonstrated and there is no evidence of occlusion or hemodynamically significant stenosis affecting main branches of either middle cerebral artery. There appear to be a similar number of opacified M3 and M4 branches bilaterally. Posterior Circulation: The vertebral arteries and right PICA are widely patent. No left PICA is identified. The left PICA territory is probably supplied by the contralateral PICA or ipsilateral AICA (normal anatomical appearance). The basilar artery, superior cerebellar arteries, and main branches of the pest controller assistant appear widely patent. There appear to be tiny posterior communicating arteries bilaterally. No aneurysms are seen arising from the basilar artery trunk or apex. Postcontrast Head CT: No enhancing space-occupying mass lesion is demonstrated. There appears to be normal intravascular contrast enhancement in the dural venous sinuses and deep venous structures. Again demonstrated is paranasal sinus disease as documented on report for earlier head CT. IMPRESSION: Unremarkable intracranial CT angiogram. In particular, no evidence of occlusion or hemodynamically significant stenosis affecting main branches of the anterior or posterior circulations. - EKG Results EKG Interpreted Independently: Yes EKG Comparison: Unchanged from prior EKG EKG Findings: Sinus rhythm - Other Other Results/Comments: Echo-pending. Core Measures - Anticipated LOS I expect patient to be DC'd or transferred within 96 hours.: Yes - DVT/VTE - Prophylaxis VTE/DVT Device ordered at admit?: Yes VTE/DVT Prophylaxis med ordered at admit?: Yes - Stroke - Rehab Assessment Rehab services assessment to be ordered?: Yes - AMI - Statin at Admit Aspirin Prescribed on Admit: Yes
--- NOTE | 2017-08-27 15:27 | CT Report ---
CT ANGIOGRAM HEAD AND POSTCONTRAST HEAD CT INDICATION: 67-year-old female with right arm and face weakness since last night. Concern for possibl e CVA. Please assess. TECHNIQUE: CT Angiogram Head: 80 mL of Isovue-300 contrast were injected at a rapid rate through a large bore, right antecubital in travenous catheter. The head was scanned helically during arterial phase. Data was reconstructed into 0.5 mm axial images. In addition, MIP reconstructions have been generated in multiple projections to allow better assessment of the intracranial arteries. Postcontrast Head CT: Sequential 5 mm axial images were obtained through the brain following the CT angiogram. In accordance with CT protocol optimization, one or more of the following dose reduction techniques w ere utilized for this exam: automated exposure control, adjustment of mA and/or KV based on patient s ize, or use of iterative reconstructive technique. COMPARISON: None. FINDINGS: CT Angiogram Head: Anterior Circulation: There is calcified plaque scattered throughout the carotid siphons without significant associated ICA stenosis. No ICA aneurysm is identified. The A1 segments of the anterior cerebral arteries are codom inant. No anterior communicating artery is identified. There appears to be filling of A2 and distal A CA branches. No obvious NESTOR branch occlusion is identified. The middle cerebral arteries are unremarkable. No aneurysm is demonstrated and there is no evidence o f occlusion or hemodynamically significant stenosis affecting main branches of either middle cerebral artery. There appear to be a similar number of opacified M3 and M4 branches bilaterally. Posterior Circulation: The vertebral arteries and right PICA are widely patent. No left PICA is identified. The left PICA te rritory is probably supplied by the contralateral PICA or ipsilateral AICA (normal anatomical appeara nce). The basilar artery, superior cerebellar arteries, and main branches of the rag cutting machine feeder appear widely p atent. There appear to be tiny posterior communicating arteries bilaterally. No aneurysms are seen arising f rom the basilar artery trunk or apex. Postcontrast Head CT: No enhancing space-occupying mass lesion is demonstrated. There appears to be normal intravascular co ntrast enhancement in the dural venous sinuses and deep venous structures. Again demonstrated is paranasal sinus disease as documented on report for earlier head CT. IMPRESSION: Unremarkable intracranial CT angiogram. In particular, no evidence of occlusion or hemodynamically significant stenosis affecting main branch es of the anterior or posterior circulations. Referring Provider Line: [phone] SITE ID: [id number]
--- NOTE | 2017-08-27 15:28 | CT Report ---
CT ANGIOGRAM NECK INDICATION: 67-year-old female with right face and arm weakness since last night. Concern for acute C VA. Please assess. TECHNIQUE: 80 mL of Isovue-300 contrast were injected at a rapid rate through a large bore, right antecubital in travenous catheter. The neck was scanned helically during arterial phase. Data was reconstructed into 0.5 mm axial images. In addition, MIP reconstructions have been generated in multiple projections to allow better assessment of the extracranial carotid and vertebral arteries. Significant arterial stenoses will be assessed using NASCET type measurements. In accordance with CT protocol optimization, one or more of the following dose reduction techniques w ere utilized for this exam: automated exposure control, adjustment of mA and/or KV based on patient s ize, or use of iterative reconstructive technique. COMPARISON: None. FINDINGS: There is normal branching of the aortic arch. No stenoses are identified in the first-order, supraaor tic arteries. Right Carotid Artery: The proximal common carotid artery is partially obscured due to artifact from patient motion and due to beam hardening artifact from dense contrast in the right subclavian vein. The middle and distal th irds are better seen and appear widely patent. No stenosis at the carotid bifurcation. The extracrani al ICA is widely patent throughout. Left Carotid Artery: Normal. Right Vertebral Artery: This is the dominant vertebral artery in this individual. The origin and prox imal/mid V1 segment are partially obscured due to beam hardening artifact. Pathology is demonstrated. The V2 and V3 segments are well seen and appear patent throughout. Left Vertebral Artery: Mildly hypoplastic. The origin and proximal V1 segment are poorly assessed due to artifact. The possibility of stenosis cannot be excluded. Mid and distal V1 segment are better se en and appear patent. The V2 and V3 segments appear patent. Of note, there are numerous lymph nodes in the anterior and posterior triangles of the neck. None of these appear to meet the size criterion for malignancy and all appear well-defined and homogeneous. H owever, the number of lymph nodes is unusual for a patient of this age. IMPRESSION: 1. Normal appearance of the extracranial left carotid artery. 2. Very poor assessment of the proximal vertebral arteries and proximal right common carotid artery d ue to artifact. The possibility of stenosis cannot be excluded. However, the vertebral arteries and r ight carotid artery are much better visualized in the mid and upper neck and no pathology is demonstr ated. Referring Provider Line: [phone] SITE ID: [id number]
[2017-08-27] MEDS: SODIUM CHLORIDE FLUSH 0.9% 10 ML SYRINGE IVP SCH (16:48)
[2017-08-27] MEDS ORDERED: PHENOL THROAT SPRAY 177 ML MM PRN (17:59)
[2017-08-27] MEDS ORDERED: BENZOCAINE/MENTHOL LOZENGE MM PRN (17:59)
[2017-08-27] MEDS ORDERED: ALBUTEROL 6.7 GM INHALER INH PRN (18:51)
--- NOTE | 2017-08-27 19:01 | MRI Preliminary Report ---
Exam: MRI BRAIN W/O IMPRESSION: 1. MRI confirms findings of acute to subacute small vessel ischemic infarct in the left deep brain co rresponding to the region of abnormal hypodensity seen on CT of the head earlier today. 2. No hemorrhage. 3. Prominent findings of pansinusitis, multiple air-fluid levels suggest an acute component. [facility] SITE ID: [id number]
--- NOTE | 2017-08-27 19:25 | MRI Report ---
EXAM: MRI BRAIN WITHOUT CONTRAST EXAM DATE: 08/27/2017 06:17 PM. CLINICAL HISTORY: Clinical diagnosis of stroke with speech difficulty and acute right-sided weakness. COMPARISON: CT of the brain without contrast showing findings of left deep brain infarct performed ea tsering today at 1206 hrs. TECHNIQUE: Multiplanar, multisequence T1-weighted and fluid-sensitive MR sequences of the brain were performed. Sequences optimized for routine evaluation. Other: None. IV Contrast: None. FINDINGS: Edema is again seen similar to prior CT findings in the left deep brain as previously described, this abnormality is accompanied by restricted diffusion and is consistent with acute to subacute small ve ssel ischemic infarct in the region of the left melton radiata extending inferiorly and laterally int o the left lateral basal ganglia region. This area of infarct measures up to 2 cm AP, 1.5 cm transver se and 2.3 cm craniocaudal. No acute hemorrhage. Normal brain volume for age. No hydrocephalus, mass-effect or midline shift. Minimal additional white matter disease is present in the brain, potentially secondary to chronic edmond roangiopathy. Extensive paranasal sinus disease. Multifocal mucosal thickening. Multiple air-fluid levels. Probable empty or partially empty sella. IMPRESSION: 1.MRI confirms findings of acute to subacute small vessel ischemic infarct in the left deep brain cor responding to the region of abnormal hypodensity seen on CT of the head earlier today. 2. No hemorrhage. 3. Prominent findings of pansinusitis, multiple air-fluid levels suggest an acute component. [facility] Referring Provider Line: [phone] SITE ID: [id number]
[2017-08-27] MEDS: CLOPIDOGREL 75 MG TABLET PO SCH (19:51)
[2017-08-27] MEDS: ATORVASTATIN 40 MG TABLET PO SCH ×2 (19:51→21:26)
[2017-08-27] MEDS ORDERED: INSULIN GLARGINE 300 UNIT/3 ML PEN SUBQ SCH (21:00)
[2017-08-27] MEDS: OXYMETAZOLINE NASAL SPRAY NAS SCH (21:06)
[2017-08-27] MEDS: INSULIN ASPART 300 UNIT/3 ML PEN SUBQ SCH (21:07)
[2017-08-28 06:21] LABS: BASOPHILS # (AUTO) 0.1 10^3/uL (0.0-0.1); EOSINOPHILS # (AUTO) 0.3 10^3/uL (0.0-0.7); EOSINOPHILS % (AUTO) 3.7 %; HGB - HEMOGLOBIN 12.6 g/dL (12.0-16.0); LYMPHOCYTES # (AUTO) 3.1 10^3/uL (1.5-3.5); LYMPHOCYTES % (AUTO) 35.2 %; MEAN CORPUSCULAR HEMOGLOBIN 24.5 pg (27.0-31.0); MEAN CORPUSCULAR HGB CONC 31.9 g/dL (32.0-36.0); MEAN CORPUSCULAR VOLUME 76.9 fL (81.0-99.0); MONOCYTES # (AUTO) 0.5 10^3/uL (0.0-1.0); MONOCYTES % (AUTO) 5.3 %; NEUTROPHILS # (AUTO) 4.8 10^3/uL (1.5-6.6); NEUTROPHILS % (AUTO) 54.8 %; PLT - PLATELET COUNT 250 10^3/uL (130-450); RED BLOOD COUNT 5.16 10^6/uL (4.20-5.40); RED CELL DISTRIBUTION WIDTH 16.8 % (12.0-15.0); WHITE BLOOD COUNT 8.7 x10^3/uL (4.8-10.8)
[2017-08-28] MEDS: SODIUM CHLORIDE FLUSH 0.9% 10 ML SYRINGE IVP SCH ×2 (06:31→09:57)
[2017-08-28 06:34] LABS: ALBUMIN 4.1 g/dL (3.2-5.5); ALBUMIN/GLOBULIN RATIO 1.1 (1.0-2.2); BILIRUBIN,TOTAL 1.1 mg/dL (0.2-1.0); CALCIUM 9.2 mg/dL (8.5-10.3); CREATININE 0.6 mg/dL (0.4-1.0); MAGNESIUM 1.8 mg/dL (1.7-2.8); TOTAL PROTEIN 7.8 g/dL (6.7-8.2)
[2017-08-28 06:38] LABS: % IRON SATURATION 14 % (20-50); CHOL/HDL RATIO 6.3 (<4.4); CHOLESTEROL 219 mg/dL; HDL CHOLESTEROL 35 mg/dL; IRON 56 ug/dL (28-170); LDL CHOLESTEROL,CALCULATED 150 mg/dL; LDL/HDL RATIO 4.3 (<4.4); TOTAL IRON BINDING CAPACITY 414 ug/dL (250-450); TRANSFERRIN 296 mg/dL (192-382); VLDL CHOLESTEROL 34 mg/dL
[2017-08-28 06:54] LABS: HB2 TOTAL 14.2 g/dL; HEMOGLOBIN A1C 1.13 g/dL; HEMOGLOBIN A1C % 9.4 % (4.6-6.2)
--- NOTE | 2017-08-28 08:29 | DISCHARGE SUMMARY ---
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 Basal ganglia infarction- new on this admission, stable. ASA, increased statin dose recommended. Right sided weakness (R53.1)- improved, continued therapy. Expressive aphasia (R47.01)- improved, no confusion. Hypertension (I10)- chronic, stable. Antihypertensives held due to recent infarct. 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 - HPI History of Present Illness: Zhen Hudson is a morbidly obese 67 year old white female with a past medical history of insulin dependent DM type 2, hypothyroidism, rheumatoid arthritis, suspected sleep apnea, hypertension, hyperlipidemia, and urinary stress incontinence. She states that she went to bed last night around 8 pm and fell asleep in the chair as she has been suffering with a URI, so lying flat is uncomfortable. She woke up at 12midnight with mild ataxia, right arm weakness, and noticed dribbling as she drank. She was home alone as her took a trip to [place] to visit family, so she ended up falling back asleep. When she awoke this AM, she felt similar symptoms, so phoned family who soon "face-timed " her. She was noted to have a right facial droop, profound expressive aphasia , and right sided weakness. Once in the ED preliminary CT stroke protocol scans showed subtle hypodensity at the left ganglia that may reflect acute infarct, MRI is recommended. This finding does coincide with clinical picture. No lab findings were found to be concerning. The patient denies chest pain, N /V, SOB, hallucinations, or vision/hearing changes. She admits to extra stress lately related to disagreements with her eldest son, but otherwise leads a low stress environment and states that she has a supportive . She will be admitted for further work up for suspected CVA to our observation. An echocardiogram, MRI stat, and telemetry monitoring will be ordered. - CONSULTS | PROCEDURES Consultations: [facility] neuro-care to continue at [facility] Hospital Course: The following diagnoses were prevalent during this hospital stay: (1) Cerebrovascular accident (CVA)- A CVA is suspected upon presentation to ED based on physical exam findings, and preliminary CT results. The patient is noted to have right sided weakness with profound expressive aphasia with an unknown "last well" time due to patient's explanation of onset of symptoms. Her recollection was that she fell asleep in her recliner, and awoke at 12midnight with her first symptoms, but fell back asleep until this AM. The patient was admitted to the observation unit and patient underwent the usual CVA work up including a bedside echocardiogram with bubble study which showed no valve abnormalities, mild LV hypertrophy, and an EF of 65-70% , MRI of brain , which confirmed a basal ganglia infarction consistent with physical clinical findings. The patient did not need a physical therapy evaluation due to her being at her baseline ambulation at the time of discharge home. She may benefit from outpatient OT due to mild deficits involving right upper arm, and may also show improvement if speech therapy were utilized. The patient was recommended to stop all over the counter herbals and other medications given the recent insult that her body has been through. (2) Basal ganglia infarction- As per CT report and confirmed with a brain MRI, the patient is noted to have an acute basal ganglia infarction. The patient has 2 prominent directly related risk factors which include potentially uncontrolled hypertension and diabetes mellitus. The patient and her were provided teaching material that outlines potential symptoms from this area of brain injury and what they may expect. (3) Right sided weakness- The patient reports mild ataxia at home that thought to be resolved upon admission exam. She had equal strength and sensation of BLE , and only mildly deficient in RUE. She does not demonstrate drift with any extremities, but when asked to shrug shoulders, her right shoulder does not go as high as her left. The patient underwent continuous serial neuro checks as per protocol CVA work up and she may expect improvement with time. No PT out patient therapy was recommended at the time of discharge. (4) Expressive aphasia- The patient demonstrates frustration when being questioned during intake admission exam. She also is found to be tearful during her admission exam; when speaking about her recent stress in relation to her eldest son as they are "fighting right now". She also has a mild right facial droop that slightly improved at the time of discharge. The patient demonstrated good swallowing techniques and there was no concern for potential aspiration. Speech therapy was recommended out patient for impaired speech. (5) Hypertension essential- The patient has a known history of this and this is managed by PCP, Terra GARCIA. She is prescribed Losartan, amlodipin, and HCTZ at home. Patient is noted to be hypertensive upon arrival to the ED with SBP's in the 180-200's. Patient denies headaches or blurred vision. Patient's usual home medications were held and recommended to continue holding until follow up with PCP, as it is ideal to passively allow blood pressure to be elevated in light of this brain infarction. (6) Insulin dependent type 2 diabetes mellitus- The patient admits to DM for the past ~20 years. She is now insulin dependent and is prescribed several agents at home including; metformin, glipizide, and NPH. She states that her sugars have been greater than 200 for quite some time due to stress and recent URI. A HgA1C was checked and found to be elevated at 9.4%. All oral agents were temporarily held during her stay as per hospital protocol and resumed upon discharge. Disposition: The patient was discharged in stable condition home with and was agreeable to prompt follow up with PCP. As part of work up a TSH was checked and found to be elevated at 8.57, so Synthroid was adjusted to a consistent dose of 200mcg daily. - ALLERGIES Allergies/Adverse Reactions: Allergies Allergy/AdvReac Type Severity Reaction Status Date / Time amoxicillin Allergy Intermediate Rash Verified 08/27/17 12:01 clindamycin Allergy Intermediate Rash Verified 08/27/17 12:01 erythromycin base Allergy Intermediate Rash Verified 08/27/17 12:01 - MEDICATIONS Home Medications: Ambulatory Orders Medication Instructions Recorded Confirmed Glipizide 5 mg PO 0730 08/27/16 08/27/17 Metformin HCl 850 mg PO TIDWM 08/27/16 08/27/17 amLODIPine [Norvasc] 5 mg PO DAILY 08/27/16 08/27/17 hydroCHLOROthiazide [Hydrodiuril] 25 mg PO DAILY 08/27/16 08/27/17 Albuterol Sulf [Ventolin Hfa 2 puffs INH Q4H PRN 08/27/17 08/27/17 Inhaler] Losartan Potassium 100 mg PO DAILY 08/27/17 08/27/17 Aspirin EC [Ecotrin] 325 mg PO DAILY #30 tablet 08/28/17 Atorvastatin Calcium 40 mg PO QPM #90 tablet 08/28/17 Insulin NPH Human Isophane 60 unit SQ QPM #1 vial 08/28/17 [Humulin N] Levothyroxine [Synthroid] 200 mcg PO QDAC #60 tablet 08/28/17 - PHYSICAL EXAM AT DISCHARGE General Appearance: positive: No acute distress, Alert Eyes Bilateral: positive: Normal inspection, PERRL ENT: positive: ENT inspection nml, Pharynx nml, No signs of dehydration Neck: positive: Nml inspection, Thyroid nml, No JVD, Trachea midline Respiratory: positive: Chest non-tender, No respiratory distress, Breath sounds nml Cardiovascular: positive: Regular rate & rhythm, No murmur, No gallop Peripheral Pulses: positive: 2+ Abdomen: positive: Non-tender, No organomegaly, Nml bowel sounds, Other (obese) Back: positive: Nml inspection Skin: positive: No rash, Warm, Dry Extremities: positive: Non-tender, Full ROM Neurologic/Psychiatric: positive: Oriented x3, Weakness, Sensory loss, Facial droop, Slurred/abnml speech, Depressed mood/affect Reflexes: Bicep (R): 2+, Bicep (L): 3+ - LABS Result Diagrams: 08/28/17 06:10 08/28/17 06:10 - DIAGNOSTIC IMAGING Diagnostic Imaging Results: Final report reviewed Diagnostic Imaging Results Comments: EXAM: CT HEAD EXAM DATE: 08/27/2017 12:18 PM. CLINICAL HISTORY: Right arm/face weakness since last night. COMPARISON: None. TECHNIQUE: Multiaxial CT images were obtained from the foramen magnum to the vertex. Reformats: Coronal. IV contrast: None. In accordance with CT protocol optimization, one or more of the following dose reduction techniques were utilized for this exam: automated exposure control, adjustment of mA and/or KV based on patient size, or use of iterative reconstructive technique. FINDINGS: Parenchyma: No intraparenchymal hemorrhage. No evidence of mass or midline shift. There is subtle hypodensity at the left basal ganglia, possibly reflecting acute lacunar infarct. Otherwise no evidence of acute infarct. [place]- white differentiation is otherwise intact. There is mild patchy periventricular white matter hypodensity, nonspecific but suggestive of chronic microvascular ischemic change. Extraaxial Spaces: Normal for age. No subdural or epidural collections identified. Ventricles: Normal in size and position. Sinuses and Orbits: Bilateral maxillary sinus fluid levels and mild mucosal thickening. Partially opacified ethmoid air cells. Bones: No evidence of fracture or calvarial defect. Other: None. IMPRESSION: Subtle hypodensity at the left basal ganglia may reflect acute infarct. MRI could be considered for further evaluation. Paranasal sinus disease. CT ANGIOGRAM NECK INDICATION: 67-year-old female with right face and arm weakness since last night. Concern for acute CVA. Please assess. TECHNIQUE: 80 mL of Isovue-300 contrast were injected at a rapid rate through a large bore, right antecubital intravenous catheter. The neck was scanned helically during arterial phase. Data was reconstructed into 0.5 mm axial images. In addition, MIP reconstructions have been generated in multiple projections to allow better assessment of the extracranial carotid and vertebral arteries. Significant arterial stenoses will be assessed using NASCET type measurements. In accordance with CT protocol optimization, one or more of the following dose reduction techniques were utilized for this exam: automated exposure control, adjustment of mA and/or KV based on patient size, or use of iterative reconstructive technique. COMPARISON: None. FINDINGS: There is normal branching of the aortic arch. No stenoses are identified in the first-order, supraaortic arteries. Right Carotid Artery: The proximal common carotid artery is partially obscured due to artifact from patient motion and due to beam hardening artifact from dense contrast in the right subclavian vein. The middle and distal thirds are better seen and appear widely patent. No stenosis at the carotid bifurcation. The extracranial ICA is widely patent throughout. Left Carotid Artery: Normal. Right Vertebral Artery: This is the dominant vertebral artery in this individual. The origin and proximal/mid V1 segment are partially obscured due to beam hardening artifact. Pathology is demonstrated. The V2 and V3 segments are well seen and appear patent throughout. Left Vertebral Artery: Mildly hypoplastic. The origin and proximal V1 segment are poorly assessed due to artifact. The possibility of stenosis cannot be excluded. Mid and distal V1 segment are better seen and appear patent. The V2 and V3 segments appear patent. Of note, there are numerous lymph nodes in the anterior and posterior triangles of the neck. None of these appear to meet the size criterion for malignancy and all appear well-defined and homogeneous. However, the number of lymph nodes is unusual for a patient of this age. IMPRESSION: 1. Normal appearance of the extracranial left carotid artery. 2. Very poor assessment of the proximal vertebral arteries and proximal right common carotid artery due to artifact. The possibility of stenosis cannot be excluded. However, the vertebral arteries and right carotid artery are much better visualized in the mid and upper neck and no pathology is demonstrated. CT ANGIOGRAM HEAD AND POSTCONTRAST HEAD CT INDICATION: 67-year-old female with right arm and face weakness since last night. Concern for possible CVA. Please assess. TECHNIQUE: CT Angiogram Head: 80 mL of Isovue-300 contrast were injected at a rapid rate through a large bore, right antecubital intravenous catheter. The head was scanned helically during arterial phase. Data was reconstructed into 0.5 mm axial images. In addition, MIP reconstructions have been generated in multiple projections to allow better assessment of the intracranial arteries. Postcontrast Head CT: Sequential 5 mm axial images were obtained through the brain following the CT angiogram. In accordance with CT protocol optimization, one or more of the following dose reduction techniques were utilized for this exam: automated exposure control, adjustment of mA and/or KV based on patient size, or use of iterative reconstructive technique. COMPARISON: None. FINDINGS: CT Angiogram Head: Anterior Circulation: There is calcified plaque scattered throughout the carotid siphons without significant associated ICA stenosis. No ICA aneurysm is identified. The A1 segments of the anterior cerebral arteries are codominant. No anterior communicating artery is identified. There appears to be filling of A2 and distal NESTOR branches. No obvious NESTOR branch occlusion is identified. The middle cerebral arteries are unremarkable. No aneurysm is demonstrated and there is no evidence of occlusion or hemodynamically significant stenosis affecting main branches of either middle cerebral artery. There appear to be a similar number of opacified M3 and M4 branches bilaterally. Posterior Circulation: The vertebral arteries and right PICA are widely patent. No left PICA is identified. The left PICA territory is probably supplied by the contralateral PICA or ipsilateral AICA (normal anatomical appearance). The basilar artery, superior cerebellar arteries, and main branches of the lockstitch lining maker appear widely patent. There appear to be tiny posterior communicating arteries bilaterally. No aneurysms are seen arising from the basilar artery trunk or apex. Postcontrast Head CT: No enhancing space-occupying mass lesion is demonstrated. There appears to be normal intravascular contrast enhancement in the dural venous sinuses and deep venous structures. Again demonstrated is paranasal sinus disease as documented on report for earlier head CT. IMPRESSION: Unremarkable intracranial CT angiogram. In particular, no evidence of occlusion or hemodynamically significant stenosis affecting main branches of the anterior or posterior circulations. EXAM: MRI BRAIN WITHOUT CONTRAST EXAM DATE: 08/27/2017 06:17 PM. CLINICAL HISTORY: Clinical diagnosis of stroke with speech difficulty and acute right-sided weakness. COMPARISON: CT of the brain without contrast showing findings of left deep brain infarct performed earlier today at 1206 hrs. TECHNIQUE: Multiplanar, multisequence T1-weighted and fluid-sensitive MR sequences of the brain were performed. Sequences optimized for routine evaluation. Other: None. IV Contrast: None. FINDINGS: Edema is again seen similar to prior CT findings in the left deep brain as previously described, this abnormality is accompanied by restricted diffusion and is consistent with acute to subacute small vessel ischemic infarct in the region of the left melton radiata extending inferiorly and laterally into the left lateral basal ganglia region. This area of infarct measures up to 2 cm AP, 1.5 cm transverse and 2.3 cm craniocaudal. No acute hemorrhage. Normal brain volume for age. No hydrocephalus, mass-effect or midline shift. Minimal additional white matter disease is present in the brain, potentially secondary to chronic microangiopathy. Extensive paranasal sinus disease. Multifocal mucosal thickening. Multiple air- fluid levels. Probable empty or partially empty sella. IMPRESSION: 1.MRI confirms findings of acute to subacute small vessel ischemic infarct in the left deep brain corresponding to the region of abnormal hypodensity seen on CT of the head earlier today. 2. No hemorrhage. 3. Prominent findings of pansinusitis, multiple air-fluid levels suggest an acute component. ECHOCARDIOGRAM; 1. Mild LV hypertrophy. 2. EF 65-70%. 3. Negative for PFO, AV shunt. - FOLLOW UP Follow Up: Disposition: 01 Home, Self Care Condition: Good Prescriptions: Aspirin EC [Ecotrin] 325 mg PO DAILY #30 tablet Atorvastatin Calcium 40 mg PO QPM #90 tablet Insulin NPH Human Isophane [Humulin N] 60 unit SQ QPM #1 vial Levothyroxine [Synthroid] 200 mcg PO QDAC #60 tablet Diet: Regular Activity Restrictions: Activity as Tolerated Shower Restrictions: No Driving Restrictions: Yes Weight Bearing: Full Weight Instruction Topics: Cholesterol Control, Stroke Dc Additional Instructions or Follow Up instructions: You were admitted to the hospital for a stroke work up as you had difficulty speaking and right sided weakness. Preliminary head CT scans showed damage and MRI results confirmed ischemia (restricted oxygenated tissue) that is acute and subacute (as recent as ~1 day ago) to the left deep brain small vessels. (left melton radiata extending inferiorly and laterally into the left lateral basal ganglia region). [facility] neurology was updated and consulted who recommended monitoring and stroke protocol, which was followed throughout your stay. Please take all of your medications as prescribed, with the exception of your blood pressure medications which you should NOT take until you visit your PCP on Tuesday or Tuesday. Your blood pressure needs to be higher for the next 72 hours to ensure there is no further injury to the delicate brain tissue. Aspirin and high dose statins are indicated immediately following a stroke. Please stop taking all of the herbal medications as you have had a recent insult to your body and you should go over each one with your PCP and add slowly if indicated. I am including a hand-out about things that are expected in those who experience this type of stroke. I have recommended outpatient speech therapy to help you out. Please rest when you are tired, control blood sugars, and ask for help. Please see your PCP within one week, preferably Tuesday or Tuesday. - TIME SPENT Time Spent in Discharge (Minutes): 60 ( present)
[2017-08-28] MEDS: INSULIN ASPART 300 UNIT/3 ML PEN SUBQ SCH ×4 (08:41→11:58)
[2017-08-28] MEDS ORDERED: POLYETHYLENE GLYCOL 3350 17 GM PACKET PO SCH (09:00)
[2017-08-28] MEDS: OXYMETAZOLINE NASAL SPRAY NAS SCH (09:56)
[2017-08-28] MEDS: CLOPIDOGREL 75 MG TABLET PO SCH (09:56)
[2017-08-28 10:22] VITALS: BP 171/75
--- NOTE | 2017-08-28 11:26 | Discharge Plan ---
Discharge Plan Disposition: Home, Self Care Condition: Good Prescriptions: Aspirin EC [Ecotrin] 325 mg PO DAILY #30 tablet Atorvastatin Calcium 40 mg PO QPM #90 tablet Insulin NPH Human Isophane [Humulin N] 60 unit SQ QPM #1 vial Levothyroxine [Synthroid] 200 mcg PO QDAC #60 tablet Diet: Regular Activity Restrictions: Activity as Tolerated Shower Restrictions: No Driving Restrictions: Yes Weight Bearing: Full Weight Instruction Topics: Cholesterol Control, Stroke Dc Additional Instructions or Follow Up instructions: You were admitted to the hospital for a stroke work up as you had difficulty speaking and right sided weakness. Preliminary head CT scans showed damage and MRI results confirmed ischemia (restricted oxygenated tissue) that is acute and subacute (as recent as ~1 day ago) to the left deep brain small vessels. (left melton radiata extending inferiorly and laterally into the left lateral basal ganglia region). [facility] neurology was updated and consulted who recommended monitoring and stroke protocol, which was followed throughout your stay. Please take all of your medications as prescribed, with the exception of your blood pressure medications which you should NOT take until you visit your PCP on Tuesday or Tuesday. Your blood pressure needs to be higher for the next 72 hours to ensure there is no further injury to the delicate brain tissue. Aspirin and high dose statins are indicated immediately following a stroke. Please stop taking all of the herbal medications as you have had a recent insult to your body and you should go over each one with your PCP and add slowly if indicated. I am including a hand-out about things that are expected in those who experience this type of stroke. I have recommended outpatient speech therapy to help you out. Please rest when you are tired, control blood sugars, and ask for help. Please see your PCP within one week, preferably Tuesday or Tuesday. No Smoking: If you smoke, Please STOP! Call for help. Follow-up with: Terra Chand PA-C [Primary Care Provider] -
[2017-08-28] MEDS ORDERED: MAGNESIUM OXIDE 400 MG TABLET PO SCH (12:00)
[2017-08-29] MEDS ORDERED: LEVOTHYROXINE 100 MCG TABLET PO SCH ×2 (07:00→07:30)
== END 2017-08-28 13:24 | disposition home or self-care (01) ==
LOC: EDUNIT# → ED 11:45 → OBS 13:29
PROVIDERS: ADMIT Nurse Practitioner; ATTEND Nurse Practitioner
DX: I63.9 Cerebral infarction, unspecified (principal); R47.01 Aphasia; G81.91 Hemiplegia, unspecified affecting right dominant side; I10 Essential (primary) hypertension; R40.2412 Glasgow coma scale score 13-15, at arrival to emergency department; R29.703 NIHSS score 3; E11.9 Type 2 diabetes mellitus without complications; E03.9 Hypothyroidism, unspecified; E78.5 Hyperlipidemia, unspecified; E66.01 Morbid (severe) obesity due to excess calories; Z68.42 Body mass index [BMI] 45.0-49.9, adult; R06.83 Snoring; G47.10 Hypersomnia, unspecified; Z79.899 Other long term (current) drug therapy; Z79.4 Long term (current) use of insulin; Z79.51 Long term (current) use of inhaled steroids; Z86.79 Personal history of other diseases of the circulatory system
CPT/HCPCS: 36415; 70450; 70496; 70498; 70551; 80053; 80061; 83036; 83540; 83690; 83735; 84100; 84443; 84466; 85025; 93005; 93306; 99284; A9270; G0378; J1815; Q9967; 83721; 99283

== ENCOUNTER 2017-10-06 09:54 | Outpatient (CLI) | payer MEDICARE ==
[2017-10-06 13:52] LABS: HB2 TOTAL 14.3 g/dL; HEMOGLOBIN A1C 0.88 g/dL; HEMOGLOBIN A1C % 7.8 % (4.6-6.2)
== END 2017-10-06 09:55 ==
LOC: LAB.N 09:54
PROVIDERS: ATTEND Physician Assistant Medical
DX: E11.65 Type 2 diabetes mellitus with hyperglycemia (principal); E03.9 Hypothyroidism, unspecified; Z79.899 Other long term (current) drug therapy
CPT/HCPCS: 36415; 82947; 83036; 84443

== ENCOUNTER 2017-11-09 15:01 | Outpatient (CLI) | payer MEDICARE | END 2017-11-09 15:02 | disposition home or self-care (01) | LOC: LAB.N 15:01 | PROVIDERS: ATTEND Physician Assistant Medical | DX: E03.9 Hypothyroidism, unspecified (principal); Z79.899 Other long term (current) drug therapy | CPT/HCPCS: 36415; 84443 ==

== ENCOUNTER 2018-01-04 10:05 | Outpatient (CLI) | payer MEDICARE ==
[2018-01-04 14:11] LABS: HB2 TOTAL 13.8 g/dL; HEMOGLOBIN A1C 0.78 g/dL; HEMOGLOBIN A1C % 7.3 % (4.6-6.2)
== END 2018-01-04 10:06 ==
LOC: LAB.R 10:05
PROVIDERS: ATTEND Physician Assistant Medical
DX: E11.65 Type 2 diabetes mellitus with hyperglycemia (principal); Z79.899 Other long term (current) drug therapy
CPT/HCPCS: 82947; 83036

== ENCOUNTER 2018-05-03 15:25 | Outpatient (CLI) | payer MEDICARE ==
[2018-05-03 19:38] LABS: HB2 TOTAL 12.4 g/dL; HEMOGLOBIN A1C 0.65 g/dL; HEMOGLOBIN A1C % 6.9 % (4.6-6.2)
== END 2018-05-03 23:59 | disposition home or self-care (01) ==
LOC: LAB.N 15:25
PROVIDERS: ATTEND Internal Medicine
DX: E11.65 Type 2 diabetes mellitus with hyperglycemia (principal)
CPT/HCPCS: 36415; 83036

== ENCOUNTER 2018-08-30 08:00 | Outpatient (CLI) | payer MEDICARE | END 2018-08-30 23:59 | disposition home or self-care (01) | LOC: LAB.N 08:00 | PROVIDERS: ATTEND Podiatrist | DX: E79.0 Hyperuricemia without signs of inflammatory arthritis and tophaceous disease (principal) | CPT/HCPCS: 36415; 84550 ==

== ENCOUNTER 2019-05-17 10:47 | Outpatient (CLI) | payer MEDICARE ==
[2019-05-17 18:35] LABS: BASOPHILS # (AUTO) 0.1 10^3/uL (0.0-0.1); BASOPHILS % (AUTO) 0.6 %; EOSINOPHILS # (AUTO) 0.3 10^3/uL (0.0-0.7); HGB - HEMOGLOBIN 12.9 g/dL (12.0-16.0); LYMPHOCYTES # (AUTO) 2.7 10^3/uL (1.5-3.5); LYMPHOCYTES % (AUTO) 33.5 %; MEAN CORPUSCULAR HGB CONC 30.5 g/dL (32.0-36.0); MEAN PLATELET VOLUME 12.3 fL (7.9-10.8); MONOCYTES # (AUTO) 0.4 10^3/uL (0.0-1.0); MONOCYTES % (AUTO) 5.1 %; NEUTROPHILS # (AUTO) 4.5 10^3/uL (1.5-6.6); NEUTROPHILS % (AUTO) 56.5 %; PLT - PLATELET COUNT 245 10^3/uL (130-450); RED BLOOD COUNT 5.16 10^6/uL (4.20-5.40); RED CELL DISTRIBUTION WIDTH 16.2 % (12.0-15.0)
[2019-05-17 19:09] LABS: HEMOGLOBIN A1C 1.06 g/dL; HEMOGLOBIN A1C % 9.6 % (4.6-6.2)
[2019-05-17 19:12] LABS: ALBUMIN 4.3 g/dL (3.2-5.5); ALBUMIN/GLOBULIN RATIO 1.3 (1.0-2.2); ALKALINE PHOSPHATASE 88 IU/L (42-121); ALT ALANINE AMINOTRANSFERASE 33 IU/L (10-60); AST ASPARTATE AMINOTRANSFERASE 27 IU/L (10-42); BILIRUBIN,TOTAL 1.4 mg/dL (0.2-1.0); BUN - BLOOD UREA NITROGEN 19 mg/dL (6-20); CALCIUM 9.1 mg/dL (8.5-10.3); CARBON DIOXIDE - CO2 29 mmol/L (21-32); CHLORIDE 98 mmol/L (101-111); CHOL/HDL RATIO 3.6 (<4.4); CHOLESTEROL 152 mg/dL; CREATININE 0.8 mg/dL (0.4-1.0); GFR - MDRD 72 (>89); GLUCOSE 237 mg/dL (70-100); HDL CHOLESTEROL 42 mg/dL; LDL CHOLESTEROL,CALCULATED 73 mg/dL; LDL/HDL RATIO 1.7 (<4.4); SODIUM 136 mmol/L (135-145); TOTAL PROTEIN 7.5 g/dL (6.7-8.2); VLDL CHOLESTEROL 37 mg/dL
[2019-05-17 19:16] LABS: THYROID STIMULATING HORMONE 30.24 uIU/mL (0.34-5.60)
[2019-05-17 19:18] LABS: FREE T4 (FREE THYROXINE) 0.66 ng/dL (0.58-1.64)
== END 2019-05-17 23:59 | disposition home or self-care (01) ==
LOC: LAB.N 10:47
PROVIDERS: ATTEND Family Medicine
DX: I63.9 Cerebral infarction, unspecified (principal); E03.9 Hypothyroidism, unspecified; E11.65 Type 2 diabetes mellitus with hyperglycemia; E78.2 Mixed hyperlipidemia; M06.9 Rheumatoid arthritis, unspecified; I10 Essential (primary) hypertension
CPT/HCPCS: 36415; 80053; 80061; 83036; 83721; 84439; 84443; 84481; 85025; 85651

== ENCOUNTER 2019-07-23 07:00 | Outpatient (CLI) | payer MEDICARE ==
[2019-07-23 12:10] LABS: BASOPHILS % (AUTO) 0.6 %; EOSINOPHILS # (AUTO) 0.4 10^3/uL (0.0-0.7); EOSINOPHILS % (AUTO) 5.6 %; HGB - HEMOGLOBIN 12.3 g/dL (12.0-16.0); LYMPHOCYTES # (AUTO) 2.7 10^3/uL (1.5-3.5); LYMPHOCYTES % (AUTO) 38.3 %; MEAN CORPUSCULAR HEMOGLOBIN 24.8 pg (27.0-31.0); MEAN CORPUSCULAR HGB CONC 30.9 g/dL (32.0-36.0); MEAN CORPUSCULAR VOLUME 80.2 fL (81.0-99.0); MEAN PLATELET VOLUME 11.1 fL (7.9-10.8); MONOCYTES # (AUTO) 0.4 10^3/uL (0.0-1.0); NEUTROPHILS # (AUTO) 3.6 10^3/uL (1.5-6.6); NEUTROPHILS % (AUTO) 50.2 %; PLT - PLATELET COUNT 282 10^3/uL (130-450); RED BLOOD COUNT 4.96 10^6/uL (4.20-5.40); WHITE BLOOD COUNT 7.2 x10^3/uL (4.8-10.8)
[2019-07-23 12:39] LABS: CALCIUM 9.1 mg/dL (8.5-10.3); CREATININE 0.8 mg/dL (0.4-1.0)
[2019-07-23 12:55] LABS: THYROID STIMULATING HORMONE 27.01 uIU/mL (0.34-5.60)
[2019-07-23 12:57] LABS: FREE T4 (FREE THYROXINE) 0.77 ng/dL (0.58-1.64)
[2019-07-23 13:39] LABS: HB2 TOTAL 12.7 g/dL; HEMOGLOBIN A1C 0.98 g/dL; HEMOGLOBIN A1C % 9.2 % (4.6-6.2)
== END 2019-07-23 23:59 | disposition home or self-care (01) ==
LOC: LAB.N 07:00
PROVIDERS: ATTEND Family Medicine
DX: E66.9 Obesity, unspecified (principal); M25.562 Pain in left knee; E03.9 Hypothyroidism, unspecified; E11.65 Type 2 diabetes mellitus with hyperglycemia; I10 Essential (primary) hypertension; E78.2 Mixed hyperlipidemia
CPT/HCPCS: 36415; 80048; 83036; 84439; 84443; 84481; 85025

== ENCOUNTER 2019-09-20 15:45 | Outpatient (CLI) | payer MEDICARE ==
[2019-09-20 18:00] LABS: BASOPHILS # (AUTO) 0.1 10^3/uL (0.0-0.1); BASOPHILS % (AUTO) 0.9 %; EOSINOPHILS # (AUTO) 0.4 10^3/uL (0.0-0.7); EOSINOPHILS % (AUTO) 4.1 %; LYMPHOCYTES # (AUTO) 2.9 10^3/uL (1.5-3.5); LYMPHOCYTES % (AUTO) 30.7 %; MEAN CORPUSCULAR HEMOGLOBIN 24.7 pg (27.0-31.0); MEAN CORPUSCULAR HGB CONC 30.7 g/dL (32.0-36.0); MEAN CORPUSCULAR VOLUME 80.3 fL (81.0-99.0); MEAN PLATELET VOLUME 11.6 fL (7.9-10.8); MONOCYTES # (AUTO) 0.4 10^3/uL (0.0-1.0); MONOCYTES % (AUTO) 4.6 %; NEUTROPHILS # (AUTO) 5.6 10^3/uL (1.5-6.6); NEUTROPHILS % (AUTO) 59.4 %; PLT - PLATELET COUNT 261 10^3/uL (130-450); RED BLOOD COUNT 5.27 10^6/uL (4.20-5.40); RED CELL DISTRIBUTION WIDTH 15.7 % (12.0-15.0); WHITE BLOOD COUNT 9.4 x10^3/uL (4.8-10.8)
[2019-09-20 18:15] LABS: HB2 TOTAL 13.8 g/dL; HEMOGLOBIN A1C % 8.8 % (4.6-6.2)
[2019-09-20 18:20] LABS: CALCIUM 9.1 mg/dL (8.5-10.3); CREATININE 0.7 mg/dL (0.4-1.0)
[2019-09-20 18:24] LABS: THYROID STIMULATING HORMONE 13.38 uIU/mL (0.34-5.60)
[2019-09-20 18:25] LABS: FREE T3 3.32 pg/mL (2.5-3.9)
[2019-09-20 18:26] LABS: FREE T4 (FREE THYROXINE) 0.85 ng/dL (0.58-1.64)
== END 2019-09-20 23:59 | disposition home or self-care (01) ==
LOC: LAB.WCP 15:45
PROVIDERS: ATTEND Family Medicine
DX: E66.9 Obesity, unspecified (principal); M25.562 Pain in left knee; E03.9 Hypothyroidism, unspecified; E11.65 Type 2 diabetes mellitus with hyperglycemia; E78.2 Mixed hyperlipidemia
CPT/HCPCS: 36415; 80048; 83036; 84439; 84443; 84481; 85025

== ENCOUNTER 2020-03-21 11:58 | Outpatient (CLI) | payer MEDICARE ==
[2020-03-21 18:38] LABS: BASOPHILS # (AUTO) 0.1 10^3/uL (0.0-0.1); BASOPHILS % (AUTO) 1.2 %; EOSINOPHILS # (AUTO) 0.3 10^3/uL (0.0-0.7); EOSINOPHILS % (AUTO) 3.8 %; HGB - HEMOGLOBIN 13.6 g/dL (12.0-16.0); LYMPHOCYTES # (AUTO) 2.6 10^3/uL (1.5-3.5); LYMPHOCYTES % (AUTO) 33.6 %; MEAN CORPUSCULAR HEMOGLOBIN 25.1 pg (27.0-31.0); MEAN CORPUSCULAR HGB CONC 30.9 g/dL (32.0-36.0); MEAN CORPUSCULAR VOLUME 81.2 fL (81.0-99.0); MEAN PLATELET VOLUME 12.1 fL (7.9-10.8); MONOCYTES # (AUTO) 0.5 10^3/uL (0.0-1.0); MONOCYTES % (AUTO) 5.9 %; NEUTROPHILS # (AUTO) 4.2 10^3/uL (1.5-6.6); NEUTROPHILS % (AUTO) 55.2 %; PLT - PLATELET COUNT 247 10^3/uL (130-450); RED BLOOD COUNT 5.42 10^6/uL (4.20-5.40); RED CELL DISTRIBUTION WIDTH 16.5 % (12.0-15.0); WHITE BLOOD COUNT 7.7 x10^3/uL (4.8-10.8)
[2020-03-21 18:59] LABS: CALCIUM 9.7 mg/dL (8.5-10.3); CREATININE 0.7 mg/dL (0.4-1.0)
[2020-03-21 20:01] LABS: HEMOGLOBIN A1c% 8.3 % (4.27-6.07)
== END 2020-03-21 23:59 | disposition home or self-care (01) ==
LOC: LAB.WCP 11:58
PROVIDERS: ATTEND Family Medicine
DX: E11.8 Type 2 diabetes mellitus with unspecified complications (principal); E66.9 Obesity, unspecified; I10 Essential (primary) hypertension
CPT/HCPCS: 36415; 80048; 83036; 85025

== ENCOUNTER 2020-05-26 08:00 | Outpatient (CLI) | payer MEDICARE | END 2020-05-26 23:59 | disposition home or self-care (01) | LOC: LAB.R 08:00 | PROVIDERS: ATTEND Family Medicine | DX: N61.1 Abscess of the breast and nipple (principal) | CPT/HCPCS: 81599; 87070; 87075; 87205 ==

== ENCOUNTER 2020-06-20 11:32 | Outpatient (CLI) | payer MEDICARE ==
[2020-06-20 18:23] LABS: CALCIUM 9.7 mg/dL (8.5-10.3); CREATININE 0.8 mg/dL (0.4-1.0)
[2020-06-20 18:34] LABS: CREATININE,URINE 138.6 mg/dL; MICROALBUM/CREATININE RATIO,UR 54.1 ug/mg (<30.0); MICROALBUMIN,URINE 7.5 mg/dL (0-300.0)
[2020-06-20 18:44] LABS: THYROID STIMULATING HORMONE 20.11 uIU/mL (0.34-5.60)
[2020-06-20 18:45] LABS: FREE T3 2.81 pg/mL (2.5-3.9)
[2020-06-20 18:46] LABS: FREE T4 (FREE THYROXINE) 0.84 ng/dL (0.58-1.64)
[2020-06-20 21:06] LABS: HEMOGLOBIN A1c% 10.3 % (4.27-6.07)
== END 2020-06-20 11:33 | disposition home or self-care (01) ==
LOC: LAB.N 11:32
PROVIDERS: ATTEND Family Medicine
DX: E03.9 Hypothyroidism, unspecified (principal); E11.8 Type 2 diabetes mellitus with unspecified complications
CPT/HCPCS: 36415; 80048; 82043; 82570; 83036; 84439; 84443; 84481

== ENCOUNTER 2020-07-04 10:34 | Outpatient (CLI) | payer MEDICARE ==
[2020-07-04 11:15] VITALS: BP 155/87
--- NOTE | 2020-07-04 11:15 | SLEEP CARE CONSULTATION ---
Information from patient questionnaire entered by Linda Almeida. I have reviewed and concur with the information entered by Linda Almeida. This document represents the service I personally performed and the decisions made by me, Denise Brown ARNP. History of Present Illness Service Date and Time: 07/04/2020 1034 Reason for Visit: New patient, Previously diagnosed sleep apnea (20-25 years ago) Chief Complaint: reports: Snoring, Excessive daytime sleepiness, Observed pauses in breathing, Frequent awakenings at night Date of Onset: 10 years Usual bedtime: 10 pm - 1 am Time it takes to fall asleep: 10 -60 minutes Snores at night: Yes Observed to quit breathing while asleep: Yes Number of times waking at night: 1-2 Reasons for waking at night: reports: Bathroom Toss, Turn, or Twitch while sleeping: No Recalls having dreams: Yes Usually gets out of bed at: 11 am - 3 pm, no set time Feels refreshed in the morning: Yes Morning headache: No Sleepy or fatigued during the day: Yes (sometimes) Ever fallen asleep while driving: No Takes day naps: Yes (sometimes) Dreams during day naps: Yes Prior sleep studies: Yes Year and Where: 20 years ago Additional HPI information: I had the pleasure of seeing SHAWN ESTEBAN today regarding the possibility of her having a sleep disorder. Her current complaints are snoring and frequent night awakening. She just lost her of 12 years and is still grieving. Her sleep has been affected and she is just trying to get 5-6 hours of sleep a night. She will feel rested if she does. Her cousin has told her she stops breathing during the night. She had a stroke about 3-4 years ago. She states she did use a CPAP 20-25 years ago for mild sleep apnea and slept better when she used it. - Parasomnia Symptoms Ever been unable to move upon waking from sleep: No Ever felt weak in the knees when startled or emotional: No Bothered by creepy, crawly, restless sensations in legs: No Problems with memory or concentration: No Subjective Initial [place] Sleepiness Scale score: 4 (in 2020) Past Medical History Past Medical History: reports: Hypertension, Diabetes, Stroke, Insulin resistance, Arrythmia (SVT that was treated with an ablation), Hypothyroidism, Depression (sad because just 8 months ago) Social History The patient's occupation is a Retired. Patient is and lives in [place]. Have you smoked in the past 12 months: No Alcohol use: Yes Alcohol amount and frequency: 1 drink once a month Caffeine use: Yes Caffeine amount and frequency: 2 coffees a day Family History Family history of sleep disordered breathing: No Allergies and Home Medications Drug allergies reviewed: Yes (amoxicillin, clindamycin, erythromycin) Home medication list reviewed: Yes Allergy and home medication list: Metformin Levothyroxine Losartan Atorvastatin Glipizide Hydrochlorothiazide Amlodipine Cephalexin (for dental work) Philip aspirin 325 mg Metoprolol Basaglar kwikpen OTC vitamins/supplements Review of Systems Cardiovascular: reports: high blood pressure, other (stroke 3 years ago) Urinary: reports: incontinence Psychiatric: reports: depression Ear/Nose/Throat: reports: dry mouth/throat, wisdom teeth removed. denies: tonsillectomy Physical Exam Blood Pressure: 155/87 Cuff size: wrist Heart Rate: 80 O2 Saturation: 96 Height: 5 ft 6 in Weight: 278 lb Body Mass Index: 44.9 BMI Classification: Morbidly Obese Heart: regular rate and rhythm Lungs: clear bilaterally Impression and Plan 1. Suspected Obstructive Sleep Apnea-Hypopnea Syndrome, as previously diagnosed and suggested by a history of loud and irregular snoring, observed cessation of breath while asleep, frequent awakening during the night, and excessive daytime sleepiness. Patient has been previously diagnosed and wants to see if she still needs the CPAP machine. I recommend proceeding to polysomnography to confirm the diagnosis and to assess severity. I informed the patient of what the sleep studies involve and after some discussion, obtained agreement to proceed. The pathophysiology of obstructive sleep apnea-hypopnea syndrome was discussed with the patient and health risks of cardiovascular and cerebrovascular disease if not treated. Risks of drowsy driving discussed in detail and patient advised to avoid long distance driving and to tap puller at the first sign of drowsiness. Patient agreed to plan. * Schedule polysomnography +- manual CPAP titration study and return in 1-2 weeks after the study to discuss result and initiate therapy. * Avoid long distance driving or driving when feeling sleepy. * Avoid alcohol, sedative and muscle relaxant around bedtime. * Attempt to lose weight. * Review instructions provided by trained office staff on how to prepare for the sleep study. * Return for follow-up after sleep study completed. Counseling Topics: Weight loss health impact Visit Type: In Office Time Spent with Patient (minutes): 34 Provider Statement: I spent 100% of the Face to Face Visit with the patient with greater than 50% spent counseling the patient and coordination of care.
== END 2020-07-04 10:35 | disposition home or self-care (01) ==
LOC: SC 10:34
PROVIDERS: ATTEND Nurse Practitioner Family
DX: G47.33 Obstructive sleep apnea (adult) (pediatric) (principal); E66.01 Morbid (severe) obesity due to excess calories; Z68.41 Body mass index [BMI] 40.0-44.9, adult
CPT/HCPCS: 99203; G0463; 99212

== ENCOUNTER 2020-07-08 07:00 | Outpatient (CLI) | payer MEDICARE | END 2020-07-08 23:59 | disposition home or self-care (01) | LOC: LAB.R 07:00 | PROVIDERS: ATTEND Nurse Practitioner | DX: N39.0 Urinary tract infection, site not specified (principal) | CPT/HCPCS: 87086; 87181 ==

== ENCOUNTER 2020-07-22 10:45 | Outpatient (CLI) | payer MEDICARE | END 2020-07-22 10:46 | disposition home or self-care (01) | LOC: SC 10:45 | PROVIDERS: ATTEND Nurse Practitioner Family | DX: G47.33 Obstructive sleep apnea (adult) (pediatric) (principal) | CPT/HCPCS: G0399 ×2; 95806 ==

== ENCOUNTER 2020-07-29 11:39 | Outpatient (CLI) | payer MEDICARE ==
--- NOTE | 2020-07-29 12:09 | SLEEP CARE CONSULTATION ---
Information from patient questionnaire entered by Linda Almeida. I have reviewed and concur with the information entered by Linda Almeida. This document represents the service I personally performed and the decisions made by , Denise Brown ARNP. History of Present Illness Service Date and Time: 07/29/2020 1139 Initial [place] Sleepiness Scale score: 4 (in 2020) Current [place] Sleepiness Scale score: 4 Additional HPI information: SHAWN ESTEBAN returns for follow up and results of the recently performed home sleep study. I explained the pathophysiology behind obstructive sleep apnea. We then spent quite a bit of time discussing different treatment options. For mild obstructive sleep apnea, surgery and oral appliance are alternatives to nasal CPAP therapy but in moderate or severe cases, nasal CPAP is the most effective and reliable treatment. Because apnea is primarily in supine position, then positional management therapy could be effective. Methods discussed such as positioning with pillows, using a T-shirt with tennis balls in the back, and shown commercial products that have a pillow format on back to prevent supine sleep. I reviewed the impact of weight changes on sleep apnea and strongly recommended losing weight. After some discussion, the patient opted to go with the nasal CPAP therapy. Nasal autoCPAP set at 4-15 cmH20 will be ordered with rationale explained. A manual titration study will be ordered if unable to find optimal pressure with office adjustments. I explained how CPAP machine works with sample devices [employer]pir[employer]gen[employer]s Dreamstation and PlatformQ [id number] and what to expect when using the machine. Using CPAP every night in order to get used to it was emphasized. Patient advised to put CPAP mask on before getting into bed so as not to fall asleep without CPAP. To assist acclimation to CPAP use, it could also be used for a short time during day while reading or watching TV. The patient was instructed to call the CPAP supplier to discuss any mechanical problem that may occur. If the mask given is uncomfortable or is difficult to keep on through the night even with adjustment, contact the CPAP supplier as many will replace with another mask style if notified before 30 days. If snoring or perceives is not getting enough air or too much air from the machine, notify this office. Sleep Study - Results Type of Sleep Study: Home sleep study Prior sleep studies: Yes Year and Where: 20 years ago Polysomnography/Home Sleep Study results: Physician Impression: The quality of the study is good. The length of the study is adequate (> 240 minutes). Please also see the tabulated and graphic data. 1. Obstructive Sleep Apnea-Hypopnea (ICD-10 G47.33), moderate, with an AHI of 16.4/hr and jenniffer SaO2 of 81%. During the study, the patient had 34 apneas (33 obstructive, 0 central, 1 mixed) and 74 hypopneas. The longest episode lasted 71.5 seconds. The respiratory events occurred independently of body position sleep (supine AHI was 15.0 and non-supine, 17.03). 2. Hypoxemia (ICD-10 R09.02), mild, with the lowest oxygen saturation of 81 % and 35.6 minutes with SaO2 under 90%. Baseline oxygen saturation was normal (Average oxygen saturation was 92%). Allergies and Home Medications Home medication list reviewed: Yes (no changes) Review of Systems Review of systems same as previous: Yes (no changes) Physical Exam Heart Rate: 78 O2 Saturation: 97 Height: 5 ft 6 in Weight: 281 lb Body Mass Index: 45.3 BMI Classification: Morbidly Obese Impression and Plan 1. Obstructive Sleep Apnea-Hypopnea Syndrome, moderate, with lowest oxygen sat uration of 81%. Obviously this is the cause of the patients symptoms of unrefreshed sleep, and excessive daytime sleepiness. Positive pressure therapy could benefit hypertension, diabetes, cerebrovascular disease, heart arrhythmia, insulin resistance and depression. As mentioned above, the patient will be started on nasal autoCPAP therapy with pressure set at 4-15 cmH2O. Compliance guidelines also reviewed. A copy of compliance guidelines will be given for reference at check out. 2. Hypoxemia, mild, with the lowest oxygen saturation of 81 % and 35.6 minutes with SaO2 under 90%. Her baseline oxygen saturation was normal with an average oxygen saturation at 92%. * Nasal auto CPAP therapy, pressure at 4-15 cm H2O. * Attempt to lose weight. * Avoid alcohol consumption near bedtime. * Avoid supine sleep until using CPAP. * The patient is again cautioned about driving until sleepiness completely resolves. * Return one month after CPAP obtained. I will assess response to therapy and compliance at that time. Counseling Topics: Weight loss health impact Visit Type: In Office Time Spent with Patient (minutes): 21 Provider Statement: I spent 100% of the Face to Face Visit with the patient with greater than 50% spent counseling the patient and coordination of care.
== END 2020-07-29 11:40 | disposition home or self-care (01) ==
LOC: SC 11:39
PROVIDERS: ATTEND Nurse Practitioner Family
DX: G47.33 Obstructive sleep apnea (adult) (pediatric) (principal); R09.02 Hypoxemia; E66.01 Morbid (severe) obesity due to excess calories; Z68.42 Body mass index [BMI] 45.0-49.9, adult
CPT/HCPCS: 99213; G0463; 99212

== ENCOUNTER 2020-08-28 16:03 | Outpatient (CLI) | payer MEDICARE ==
[2020-08-28 17:44] LABS: BASOPHILS # (AUTO) 0.1 10^3/uL (0.0-0.1); EOSINOPHILS # (AUTO) 0.4 10^3/uL (0.0-0.7); EOSINOPHILS % (AUTO) 3.9 %; HCT - HEMATOCRIT 44.7 % (37.0-47.0); HGB - HEMOGLOBIN 14.1 g/dL (12.0-16.0); LYMPHOCYTES # (AUTO) 4.1 10^3/uL (1.5-3.5); MEAN CORPUSCULAR HGB CONC 31.5 g/dL (32.0-36.0); MEAN CORPUSCULAR VOLUME 82.5 fL (81.0-99.0); MEAN PLATELET VOLUME 12.1 fL (7.9-10.8); MONOCYTES # (AUTO) 0.6 10^3/uL (0.0-1.0); MONOCYTES % (AUTO) 5.5 %; NEUTROPHILS # (AUTO) 5.2 10^3/uL (1.5-6.6); NEUTROPHILS % (AUTO) 50.2 %; PLT - PLATELET COUNT 276 10^3/uL (130-450); RED BLOOD COUNT 5.42 10^6/uL (4.20-5.40); RED CELL DISTRIBUTION WIDTH 14.3 % (12.0-15.0); WHITE BLOOD COUNT 10.4 x10^3/uL (4.8-10.8)
[2020-08-28 17:50] LABS: ALBUMIN 4.4 g/dL (3.2-5.5); BILIRUBIN,DIRECT 0.1 mg/dL (0.1-0.5); BILIRUBIN,TOTAL 1.5 mg/dL (0.2-1.0); CREATININE 0.8 mg/dL (0.4-1.0)
== END 2020-08-28 16:04 | disposition home or self-care (01) ==
LOC: LAB.N 16:03
PROVIDERS: ATTEND Podiatrist
DX: B35.1 Tinea unguium (principal); B35.3 Tinea pedis
CPT/HCPCS: 36415; 80076; 82565; 84520; 85025

== ENCOUNTER 2020-10-14 12:40 | Outpatient (CLI) | payer MEDICARE ==
[2020-10-14 18:15] LABS: BASOPHILS # (AUTO) 0.1 10^3/uL (0.0-0.1); BASOPHILS % (AUTO) 0.7 %; EOSINOPHILS # (AUTO) 0.4 10^3/uL (0.0-0.7); EOSINOPHILS % (AUTO) 4.7 %; HCT - HEMATOCRIT 43.7 % (37.0-47.0); HGB - HEMOGLOBIN 13.5 g/dL (12.0-16.0); LYMPHOCYTES # (AUTO) 3.2 10^3/uL (1.5-3.5); LYMPHOCYTES % (AUTO) 39.9 %; MEAN CORPUSCULAR HEMOGLOBIN 25.4 pg (27.0-31.0); MEAN CORPUSCULAR HGB CONC 30.9 g/dL (32.0-36.0); MEAN CORPUSCULAR VOLUME 82.3 fL (81.0-99.0); MEAN PLATELET VOLUME 12.6 fL (7.9-10.8); MONOCYTES # (AUTO) 0.5 10^3/uL (0.0-1.0); MONOCYTES % (AUTO) 5.7 %; NEUTROPHILS # (AUTO) 3.9 10^3/uL (1.5-6.6); NEUTROPHILS % (AUTO) 48.8 %; PLT - PLATELET COUNT 246 10^3/uL (130-450); RED BLOOD COUNT 5.31 10^6/uL (4.20-5.40); RED CELL DISTRIBUTION WIDTH 14.3 % (12.0-15.0); WHITE BLOOD COUNT 8.1 x10^3/uL (4.8-10.8)
[2020-10-14 18:34] LABS: ALBUMIN 4.2 g/dL (3.2-5.5); ALBUMIN/GLOBULIN RATIO 1.2 (1.0-2.2); ALKALINE PHOSPHATASE 112 IU/L (42-121); ALT ALANINE AMINOTRANSFERASE 50 IU/L (10-60); AST ASPARTATE AMINOTRANSFERASE 43 IU/L (10-42); BILIRUBIN,TOTAL 1.3 mg/dL (0.2-1.0); BUN - BLOOD UREA NITROGEN 23 mg/dL (6-20); CALCIUM 9.7 mg/dL (8.5-10.3); CARBON DIOXIDE - CO2 27 mmol/L (21-32); CHLORIDE 99 mmol/L (101-111); CHOL/HDL RATIO 6.5 (<4.4); CHOLESTEROL 252 mg/dL; CREATININE 0.8 mg/dL (0.4-1.0); GFR - MDRD 71 (>89); GLUCOSE 360 mg/dL (70-100); HDL CHOLESTEROL 39 mg/dL; LDL CHOLESTEROL,CALCULATED 155 mg/dL; SODIUM 133 mmol/L (135-145); TOTAL PROTEIN 7.7 g/dL (6.7-8.2); TRIGLYCERIDES 288 mg/dL; VLDL CHOLESTEROL 58 mg/dL
[2020-10-14 18:42] LABS: THYROID STIMULATING HORMONE 2.18 uIU/mL (0.34-5.60)
[2020-10-14 18:44] LABS: FREE T3 4.1 pg/mL (2.5-3.9)
[2020-10-14 18:45] LABS: FREE T4 (FREE THYROXINE) 1.15 ng/dL (0.58-1.64)
[2020-10-14 18:51] LABS: CREATININE,URINE 134.4 mg/dL; MICROALBUM/CREATININE RATIO,UR 113.1 ug/mg (<30.0); MICROALBUMIN,URINE 15.2 mg/dL (0-300.0)
[2020-10-14 20:06] LABS: ESTIMATED AVERAGE GLUCOSE 258 mg/dL (70-100); HEMOGLOBIN A1c% 10.6 % (4.27-6.07)
== END 2020-10-14 12:41 | disposition home or self-care (01) ==
LOC: LAB.N 12:40
PROVIDERS: ATTEND Family Medicine
DX: E03.9 Hypothyroidism, unspecified (principal); E78.2 Mixed hyperlipidemia; E11.8 Type 2 diabetes mellitus with unspecified complications; I10 Essential (primary) hypertension
CPT/HCPCS: 36415; 80053; 80061; 82043; 82570; 83036; 83721; 84439; 84443; 84481; 85025

== ENCOUNTER 2020-10-14 14:10 | Outpatient (CLI) | payer MEDICARE ==
--- NOTE | 2020-10-14 13:30 | SLEEP CARE CONSULTATION ---
Information from patient questionnaire entered by Linda Almeida. I have reviewed and concur with the information entered by Linda Almeida. This document represents the service I personally performed and the decisions made by , Denise Brown ARNP. History of Present Illness Service Date and Time: 10/14/2020 1300 Previous diagnosis: Moderate, Obstructive Sleep Apnea-Hypopnea Syndrome AHI: 16.4 (in 2020) Reason for follow up: first compliance Equipment type: [facility] Mask style: Nasal (AirFit N20, size medium) Backup mask available: No (will keep old mask when replaced) Last cushion change: 1 month Prior sleep studies: Yes Year and Where: 2020 - [facility]; 20 years ago- unknown Type of Sleep Study: Home sleep study HPI additional information: SHAWN ESTEBAN was diagnosed to have moderate, AHI 16.4, obstructive sleep apnea- hypopnea syndrome and returned today for CPAP therapy first compliance follow- up. CPAP Compliance Data - Data Reviewed with Patient Average duration of nightly device use: 5 hr 24 min Compliance rate %: 83.3 Current pressure setting (cmH2O): 4-15 (mean 8.7, avg 10.8, max 11.5) Humidity settin Heated hose settin Average residual AHI: 3.0 Average large leak: 1 min 21 sec Subjective Patient concerns: denies: aerophagia, mask discomfort, air blowing in eyes, mask leak noise, condensation in mask/hose, nasal congestion, dry mouth, nose, throat, epistaxis, other Observed to snore while using device: No Current pressure setting perceived as: comfortable On therapy, patient: reports: sleeping better, awakening more refreshed, being more awake and alert during the day, more rested overall. denies: drowsiness while driving Initial [place] Sleepiness Scale score: 4 (in 2020) Current [place] Sleepiness Scale score: 4 Allergies and Home Medications Home medication list reviewed: Yes (no new meds) Review of Systems Review of systems same as previous: Yes (no changes) Physical Exam Heart Rate: 95 O2 Saturation: 97 Height: 5 ft 6 in Weight: 279 lb Body Mass Index: 45.0 BMI Classification: Morbidly Obese Impression and Plan 1. Obstructive Sleep Apnea-Hypopnea Syndrome, moderate, with good treatment compliance and good apnea control. On CPAP therapy, the patient has better sleep quality and is more rested overall. She has been having some times when she will fall asleep on the couch but she if trying to go lay down with CPAP mask on if she feels she may fall asleep. She is happy with current settings and feels the pressure is comfortable. I will adjust the pressure to 9-12 cmH2O to reflect the pressure she is using with good apnea control. Compliance guidelines reviewed for insurance coverage. Patient was counseled on the difference between meeting compliance and optimal use of CPAP. Optimal use of CPAP is use of CPAP with all sleep to obtain maximum benefit of treatment. Patient is encouraged to use CPAP with all sleep. To prevent falling asleep without CPAP, patient advised to set a bedtime alarm on their phone for use while watching TV on couch or in bed. Patient's apnea severity and rationale for treatment to reduce apnea, improve sleep quality and reduce cardiovascular and cerebrovascular events was reviewed. I also reviewed the benefit of consistent device use of CPAP for hypertension, cerebrovascular disease, arrhythmia, diabetes, insulin resistance, and depression. * Change auto CPAP pressure to 9-12 cmH2O * Notify me if snoring with mask or feeling that the pressure is too much or too little * Attempt to lose weight * Call this office if any problems using CPAP * Return for follow up in 1-2 months, or sooner if concerns arise Counseling Topics: Spare mask, Weight loss health impact Visit Type: In Office Time Spent with Patient (minutes): 26 Provider Statement: I spent 100% of the Face to Face Visit with the patient with greater than 50% spent counseling the patient and coordination of care.
== END 2020-10-14 14:11 | disposition home or self-care (01) ==
LOC: SC 14:10
PROVIDERS: ATTEND Nurse Practitioner Family
DX: G47.33 Obstructive sleep apnea (adult) (pediatric) (principal); E66.01 Morbid (severe) obesity due to excess calories; Z68.42 Body mass index [BMI] 45.0-49.9, adult; E03.9 Hypothyroidism, unspecified; E78.2 Mixed hyperlipidemia; E11.8 Type 2 diabetes mellitus with unspecified complications; I10 Essential (primary) hypertension
CPT/HCPCS: 36415; 80053; 80061; 82043; 82570; 83036; 84439; 84443; 84481; 85025; 99213; G0463; 83721; 99212

== ENCOUNTER 2020-11-25 12:46 | Outpatient (CLI) | payer MEDICARE ==
--- NOTE | 2020-11-25 13:32 | SLEEP CARE CONSULTATION ---
Information from patient questionnaire entered by Linda Almeida. I have reviewed and concur with the information entered by Linda Almeida. This document represents the service I personally performed and the decisions made by , Denise Brown ARNP. History of Present Illness Service Date and Time: 11/25/2020 1246 Previous diagnosis: Moderate, Obstructive Sleep Apnea-Hypopnea Syndrome AHI: 16.4 (in 2020) Reason for follow up: other (6 week with pressure change) Equipment type: CPAP Equipment obtained from: [employer] (getting supplies as needed) Mask style: Nasal Backup mask available: No (will keep old mask when replaced) Last cushion change: 1 month Prior sleep studies: Yes Year and Where: 2020 - [facility] sleep; 20 years ago Type of Sleep Study: Home sleep study HPI additional information: SHAWN ESTEBAN was diagnosed to have moderate, AHI 16.4, obstructive sleep apnea- hypopnea syndrome and returned today for CPAP therapy 6 week pressure change follow-up. CPAP Compliance Data - Data Reviewed with Patient Average duration of nightly device use: 5 hr 23 min Compliance rate %: 81.0 (42 days) Current pressure setting (cmH2O): 9-12 Humidity settin Heated hose settin Average residual AHI: 3.6 Average large leak: 1 min 35 sec Subjective Patient concerns: reports: air blowing in eyes (little bit, adjustment resolves it). denies: aerophagia, mask discomfort, mask leak noise, condensation in mask/hose, nasal congestion, dry mouth, nose, throat, epistaxis, other Observed to snore while using device: No Current pressure setting perceived as: comfortable On therapy, patient: reports: sleeping better, awakening more refreshed, being more awake and alert during the day, more rested overall. denies: drowsiness while driving Initial [place] Sleepiness Scale score: 4 (in 2020) Current [place] Sleepiness Scale score: 2 Allergies and Home Medications Home medication list reviewed: Yes (no changes) Review of Systems Review of systems same as previous: No (cataract surgery bilateral in October) Physical Exam Heart Rate: 74 O2 Saturation: 97 Height: 5 ft 6 in Weight: 275 lb Weight change since last visit: 4 lb loss Body Mass Index: 44.4 BMI Classification: Morbidly Obese Impression and Plan 1. Obstructive Sleep Apnea-Hypopnea Syndrome, moderate, with good treatment compliance and good apnea control. On CPAP therapy, the patient has better sleep quality and is more rested overall. Patient is very satisfied with CPAP device. I will adjust her pressure to reflect what she is using. I also informed patient of the [employer] recall on the DreamStations that was recently announced. She denies any particles noted in her new machine. I encouraged her to register her dream station on the [employer] website. I discouraged using any PAP machine cam specialist that use ozone or lasers as this might encourage degradation of the noise dampening foam. I informed her that she may get an i ncline filter online to filter out any particles. Patient voiced understanding and agreement with this plan of care. Patient's apnea severity and rationale for treatment to reduce apnea, improve sleep quality and reduce cardiovascular and cerebrovascular events was reviewed. I also reviewed the benefit of consistent device use of CPAP for hypertension, cerebrovascular disease, arrhythmia, diabetes and depression. I encouraged patient to try to lose weight. * Change auto CPAP pressure to 10-12 cmH2O * [employer] Dreamstation with [employer] recall * Notify me if snoring with mask or feeling that the pressure is too much or too little * Attempt to lose weight * Call this office if any problems using CPAP * Return for follow up in 3 months, or sooner if concerns arise Counseling Topics: Spare mask, Weight loss health impact Visit Type: In Office Time Spent with Patient (minutes): 29 Provider Statement: I spent 100% of the Face to Face Visit with the patient with greater than 50% spent counseling the patient and coordination of care.
== END 2020-11-25 12:47 | disposition home or self-care (01) ==
LOC: SC 12:46
PROVIDERS: ATTEND Nurse Practitioner Family
DX: G47.33 Obstructive sleep apnea (adult) (pediatric) (principal); E66.01 Morbid (severe) obesity due to excess calories; Z68.41 Body mass index [BMI] 40.0-44.9, adult
CPT/HCPCS: 99213; G0463; 99212

== ENCOUNTER 2021-01-14 12:02 | Outpatient (CLI) | payer MEDICARE ==
[2021-01-14 18:08] LABS: CALCIUM 9.4 mg/dL (8.5-10.3); CREATININE 0.6 mg/dL (0.4-1.0); POTASSIUM 4.1 mmol/L (3.5-5.0)
[2021-01-14 19:57] LABS: ESTIMATED AVERAGE GLUCOSE 220 mg/dL (70-100); HEMOGLOBIN A1c% 9.3 % (4.27-6.07)
== END 2021-01-14 12:03 | disposition home or self-care (01) ==
LOC: LAB.N 12:02
PROVIDERS: ATTEND Family Medicine
DX: E11.8 Type 2 diabetes mellitus with unspecified complications (principal); Z68.41 Body mass index [BMI] 40.0-44.9, adult
CPT/HCPCS: 36415; 80048; 83036

== ENCOUNTER 2021-02-24 11:56 | Outpatient (CLI) | payer MEDICARE ==
[2021-02-24 13:30] VITALS: BP 152/78
--- NOTE | 2021-02-24 13:30 | SLEEP CARE CONSULTATION ---
Information from patient questionnaire entered by Kamille Martinez. I have reviewed and concur with the information entered by Kamille Martinez. This document represents the service I personally performed and the decisions made by , Denise Brown ARNP. History of Present Illness Service Date and Time: 02/24/2021 1156 Previous diagnosis: Moderate, Obstructive Sleep Apnea-Hypopnea Syndrome AHI: 16.4 (in 2020) Reason for follow up: three month (with pressure change) Equipment type: [facility] Mask style: Nasal (AirFit N20, size medium) Backup mask available: Yes (old mask) Last cushion change: 1 month Prior sleep studies: Yes Year and Where: 2020 - [facility] sleep; 20 years ago Type of Sleep Study: Home sleep study HPI additional information: SHAWN ESTEBAN was diagnosed to have moderate, AHI 16.4, obstructive sleep apnea- hypopnea syndrome and returned today for CPAP therapy three month with pressure change follow-up. Sleep Study - Results Type of Sleep Study: Home sleep study Prior sleep studies: Yes Year and Where: 2020 - [facility] sleep; 20 years ago CPAP Compliance Data - Data Reviewed with Patient Average duration of nightly device use: 5 hours 10 minutes Compliance rate %: 70 Current pressure setting (cmH2O): 10-12 Humidity settin Heated hose settin Average residual AHI: 3.2 Average large leak: 1 minute 35 seconds Subjective Patient concerns: denies: aerophagia, mask discomfort, air blowing in eyes, mask leak noise, condensation in mask/hose, nasal congestion, dry mouth, nose, throat, epistaxis, other Observed to snore while using device: No Current pressure setting perceived as: comfortable On therapy, patient: reports: sleeping better, awakening more refreshed, being more awake and alert during the day, more rested overall. denies: drowsiness while driving Initial [place] Sleepiness Scale score: 4 (in 2020) Current [place] Sleepiness Scale score: 2 Allergies and Home Medications Home medication list reviewed: Yes (no changes) Review of Systems Review of systems same as previous: Yes (no changes) Physical Exam Blood Pressure: 152/78 Cuff size: long Heart Rate: 96 O2 Saturation: 93 Height: 5 ft 6 in Weight: 266 lb Weight change since last visit: 9 lb loss Body Mass Index: 42.9 BMI Classification: Morbidly Obese Neck circumference: 17 (inches) Heart: regular rate and rhythm Lungs: clear bilaterally Impression and Plan 1. Obstructive Sleep Apnea-Hypopnea Syndrome, moderate, with fair treatment compliance and good apnea control. On CPAP therapy, the patient has better sleep quality and is more rested overall. Patient states she forgot to register her device after we talked at her last appointment. I gave her the number off of the Internet for her to call [employer] and get her dream station registered for the recall. Patient has lost about 9 pounds since her last appointment. She states she has been happier because she has a boyfriend since the of her who makes her laugh. She has also not eating out as much as she used to. Patient was encouraged to lose weight for their overall health and to reduce apneas. Patient's apnea severity and rationale for treatment to reduce apnea, improve sleep quality and reduce cardiovascular and cerebrovascular events was reviewed. I also reviewed the benefit of consistent device use of CPAP for hypertension, cerebrovascular disease, arrhythmia, diabetes and depression. * Continue auto CPAP pressure at 10-12 cmH2O * Patient to register her device with [employer] * Notify me if snoring with mask or feeling that the pressure is too much or too little * Continue to try to lose weight * Call this office if any problems using CPAP * Return for follow up in 6 months, or sooner if concerns arise Counseling Topics: Spare mask, Weight loss health impact Visit Type: In Office Time Spent with Patient (minutes): 21 Provider Statement: I spent 100% of the Face to Face Visit with the patient with greater than 50% spent counseling the patient and coordination of care.
== END 2021-02-24 11:57 | disposition home or self-care (01) ==
LOC: SC 11:56
PROVIDERS: ATTEND Nurse Practitioner Family
DX: G47.33 Obstructive sleep apnea (adult) (pediatric) (principal); E66.01 Morbid (severe) obesity due to excess calories; Z68.41 Body mass index [BMI] 40.0-44.9, adult
CPT/HCPCS: 99213; G0463; 99212

== ENCOUNTER 2021-05-19 08:00 | Outpatient (CLI) | payer MEDICARE ==
[2021-05-19 12:10] LABS: CREATININE,URINE 182.4 mg/dL; MICROALBUMIN,URINE 40.5 mg/dL (0-300.0)
[2021-05-19 12:23] LABS: CALCIUM 9.2 mg/dL (8.5-10.3); CREATININE 0.7 mg/dL (0.4-1.0)
[2021-05-19 13:03] LABS: ESTIMATED AVERAGE GLUCOSE 240 mg/dL (70-100)
== END 2021-05-19 23:59 | disposition home or self-care (01) ==
LOC: LAB.WCP 08:00
PROVIDERS: ATTEND Family Medicine
DX: I10 Essential (primary) hypertension (principal); R80.9 Proteinuria, unspecified; E66.9 Obesity, unspecified; E11.8 Type 2 diabetes mellitus with unspecified complications; F43.21 Adjustment disorder with depressed mood
CPT/HCPCS: 36415; 80048; 82043; 82570; 83036

== ENCOUNTER 2021-08-14 10:53 | Outpatient (CLI) | payer MEDICARE ==
[2021-08-14 17:46] LABS: BASOPHILS # (AUTO) 0.1 10^3/uL (0.0-0.1); EOSINOPHILS # (AUTO) 0.4 10^3/uL (0.0-0.7); EOSINOPHILS % (AUTO) 4.5 %; HCT - HEMATOCRIT 41.9 % (37.0-47.0); HGB - HEMOGLOBIN 12.9 g/dL (12.0-16.0); LYMPHOCYTES # (AUTO) 3.1 10^3/uL (1.5-3.5); LYMPHOCYTES % (AUTO) 38.5 %; MEAN CORPUSCULAR HEMOGLOBIN 24.9 pg (27.0-31.0); MEAN CORPUSCULAR HGB CONC 30.8 g/dL (32.0-36.0); MEAN CORPUSCULAR VOLUME 80.7 fL (81.0-99.0); MEAN PLATELET VOLUME 12.2 fL (7.9-10.8); MONOCYTES # (AUTO) 0.5 10^3/uL (0.0-1.0); MONOCYTES % (AUTO) 5.9 %; PLT - PLATELET COUNT 252 10^3/uL (130-450); RED BLOOD COUNT 5.19 10^6/uL (4.20-5.40); RED CELL DISTRIBUTION WIDTH 15.4 % (12.0-15.0)
[2021-08-14 18:12] LABS: CREATININE,URINE 155.5 mg/dL; MICROALBUM/CREATININE RATIO,UR 52.1 ug/mg (<30.0); MICROALBUMIN,URINE 8.1 mg/dL (0-300.0)
[2021-08-14 18:37] LABS: ALBUMIN/GLOBULIN RATIO 1.1 (1.0-2.2); ALKALINE PHOSPHATASE 109 IU/L (42-121); ALT ALANINE AMINOTRANSFERASE 52 IU/L (10-60); AST ASPARTATE AMINOTRANSFERASE 36 IU/L (10-42); BILIRUBIN,TOTAL 0.9 mg/dL (0.2-1.0); BUN - BLOOD UREA NITROGEN 23 mg/dL (6-20); CALCIUM 9.5 mg/dL (8.5-10.3); CARBON DIOXIDE - CO2 27 mmol/L (21-32); CHLORIDE 99 mmol/L (101-111); CHOL/HDL RATIO 3.5 (<4.4); CHOLESTEROL 145 mg/dL; CREATININE 0.8 mg/dL (0.4-1.0); GFR - MDRD 71 (>89); GLUCOSE 254 mg/dL (70-100); HDL CHOLESTEROL 41 mg/dL; LDL CHOLESTEROL,CALCULATED 72 mg/dL; LDL/HDL RATIO 1.8 (<4.4); POTASSIUM 4.2 mmol/L (3.5-5.0); SODIUM 134 mmol/L (135-145); TOTAL PROTEIN 7.5 g/dL (6.7-8.2); TRIGLYCERIDES 160 mg/dL; VLDL CHOLESTEROL 32 mg/dL
[2021-08-14 18:48] LABS: THYROID STIMULATING HORMONE 0.31 uIU/mL (0.34-5.60)
[2021-08-14 18:50] LABS: FREE T3 3.18 pg/mL (2.5-3.9)
[2021-08-14 18:51] LABS: FREE T4 (FREE THYROXINE) 1.05 ng/dL (0.58-1.64)
[2021-08-14 19:13] LABS: CRP - C-REACTIVE PROTEIN < 1.0 mg/dL (0-1.0)
[2021-08-14 20:18] LABS: ESTIMATED AVERAGE GLUCOSE 240 mg/dL (70-100)
== END 2021-08-14 10:54 | disposition home or self-care (01) ==
LOC: LAB.N 10:53
PROVIDERS: ATTEND Family Medicine
DX: I10 Essential (primary) hypertension (principal); R80.9 Proteinuria, unspecified; F32.A Depression, unspecified; E66.9 Obesity, unspecified; E03.9 Hypothyroidism, unspecified; I63.9 Cerebral infarction, unspecified; E11.8 Type 2 diabetes mellitus with unspecified complications; E78.2 Mixed hyperlipidemia; M06.9 Rheumatoid arthritis, unspecified; G47.33 Obstructive sleep apnea (adult) (pediatric)
CPT/HCPCS: 36415; 80053; 80061; 82043; 82570; 83036; 83721; 84439; 84443; 84481; 85025; 85651; 86140

== ENCOUNTER 2021-12-10 09:00 | Outpatient (CLI) | payer MEDICARE ==
[2021-12-10 12:46] LABS: CALCIUM 9.8 mg/dL (8.5-10.3)
[2021-12-10 13:01] LABS: CREATININE,URINE 205.1 mg/dL; MICROALBUM/CREATININE RATIO,UR 22.9 ug/mg (<30.0); MICROALBUMIN,URINE 4.7 mg/dL (0-300.0)
[2021-12-10 13:07] LABS: ESTIMATED AVERAGE GLUCOSE 183 mg/dL (70-100)
== END 2021-12-10 09:01 | disposition home or self-care (01) ==
LOC: LAB.N 09:00
PROVIDERS: ATTEND Family Medicine
DX: E11.8 Type 2 diabetes mellitus with unspecified complications (principal); R80.9 Proteinuria, unspecified; E66.9 Obesity, unspecified
CPT/HCPCS: 36415; 80048; 82043; 82570; 83036

== ENCOUNTER 2022-03-09 08:23 | Outpatient (CLI) | payer MEDICARE ==
[2022-03-09 12:08] LABS: BASOPHILS # (AUTO) 0.1 10^3/uL (0.0-0.1); BASOPHILS % (AUTO) 0.7 %; EOSINOPHILS # (AUTO) 0.4 10^3/uL (0.0-0.7); HCT - HEMATOCRIT 42.7 % (37.0-47.0); HGB - HEMOGLOBIN 13.4 g/dL (12.0-16.0); LYMPHOCYTES # (AUTO) 3.1 10^3/uL (1.5-3.5); LYMPHOCYTES % (AUTO) 32.5 %; MEAN CORPUSCULAR HEMOGLOBIN 25.8 pg (27.0-31.0); MEAN CORPUSCULAR HGB CONC 31.4 g/dL (32.0-36.0); MEAN CORPUSCULAR VOLUME 82.1 fL (81.0-99.0); MEAN PLATELET VOLUME 11.4 fL (7.9-10.8); MONOCYTES # (AUTO) 0.6 10^3/uL (0.0-1.0); MONOCYTES % (AUTO) 6.3 %; NEUTROPHILS # (AUTO) 5.4 10^3/uL (1.5-6.6); NEUTROPHILS % (AUTO) 56.2 %; PLT - PLATELET COUNT 243 10^3/uL (130-450); WHITE BLOOD COUNT 9.5 x10^3/uL (4.8-10.8)
[2022-03-09 12:27] LABS: ALBUMIN 4.2 g/dL (3.2-5.5); ALBUMIN/GLOBULIN RATIO 1.2 (1.0-2.2); ALKALINE PHOSPHATASE 82 IU/L (42-121); ALT ALANINE AMINOTRANSFERASE 27 IU/L (10-60); AST ASPARTATE AMINOTRANSFERASE 27 IU/L (10-42); BILIRUBIN,TOTAL 1.2 mg/dL (0.2-1.0); BUN - BLOOD UREA NITROGEN 22 mg/dL (6-20); CALCIUM 9.3 mg/dL (8.5-10.3); CARBON DIOXIDE - CO2 29 mmol/L (21-32); CHLORIDE 99 mmol/L (101-111); CHOLESTEROL 156 mg/dL; CREATININE 0.9 mg/dL (0.4-1.0); GFR - MDRD 62 (>89); GLUCOSE 93 mg/dL (70-100); HDL CHOLESTEROL 39 mg/dL; LDL CHOLESTEROL,CALCULATED 89 mg/dL; LDL/HDL RATIO 2.3 (<4.4); POTASSIUM 3.8 mmol/L (3.5-5.0); SODIUM 137 mmol/L (135-145); TOTAL PROTEIN 7.8 g/dL (6.7-8.2); TRIGLYCERIDES 139 mg/dL; VLDL CHOLESTEROL 28 mg/dL
[2022-03-09 12:39] LABS: THYROID STIMULATING HORMONE 36.16 uIU/mL (0.34-5.60)
[2022-03-09 12:40] LABS: CREATININE,URINE 150.9 mg/dL; FREE T3 2.64 pg/mL (2.5-3.9); MICROALBUM/CREATININE RATIO,UR 19.9 ug/mg (<30.0)
[2022-03-09 12:41] LABS: FREE T4 (FREE THYROXINE) 0.37 ng/dL (0.58-1.64)
[2022-03-09 12:52] LABS: ESTIMATED AVERAGE GLUCOSE 171 mg/dL (70-100); HEMOGLOBIN A1c% 7.6 % (4.27-6.07)
== END 2022-03-09 08:24 | disposition home or self-care (01) ==
LOC: LAB.N 08:23
PROVIDERS: ATTEND Family Medicine
DX: I10 Essential (primary) hypertension (principal); F32.A Depression, unspecified; E66.9 Obesity, unspecified; E03.9 Hypothyroidism, unspecified; E78.2 Mixed hyperlipidemia; Z68.41 Body mass index [BMI] 40.0-44.9, adult
CPT/HCPCS: 36415; 80053; 80061; 82043; 82570; 83036; 83721; 84439; 84443; 84481; 85025

== ENCOUNTER 2022-08-06 11:11 | Outpatient (CLI) | payer MEDICARE ==
[2022-08-06 18:01] LABS: ALBUMIN 4.1 g/dL (3.2-5.5); ALBUMIN/GLOBULIN RATIO 1.1 (1.0-2.2); BILIRUBIN,TOTAL 1.3 mg/dL (0.2-1.0); CALCIUM 9.4 mg/dL (8.5-10.3); CREATININE 0.7 mg/dL (0.4-1.0); POTASSIUM 4.3 mmol/L (3.5-5.0); TOTAL PROTEIN 7.7 g/dL (6.7-8.2)
[2022-08-06 18:04] LABS: CREATININE,URINE 120.8 mg/dL; MICROALBUM/CREATININE RATIO,UR 76.2 ug/mg (<30.0); MICROALBUMIN,URINE 9.2 mg/dL (0-300.0)
[2022-08-06 18:14] LABS: THYROID STIMULATING HORMONE 2.43 uIU/mL (0.34-5.60)
[2022-08-06 18:15] LABS: FREE T3 3.2 pg/mL (2.5-3.9)
[2022-08-06 18:16] LABS: FREE T4 (FREE THYROXINE) 0.73 ng/dL (0.58-1.64)
[2022-08-06 21:33] LABS: ESTIMATED AVERAGE GLUCOSE 249 mg/dL (70-100); HEMOGLOBIN A1c% 10.3 % (4.27-6.07)
== END 2022-08-06 11:12 | disposition home or self-care (01) ==
LOC: LAB.N 11:11
PROVIDERS: ATTEND Family Medicine
DX: E03.9 Hypothyroidism, unspecified (principal); E11.8 Type 2 diabetes mellitus with unspecified complications
CPT/HCPCS: 36415; 80048; 80053; 82043; 82570; 83036; 84439; 84443; 84480; 84481

== ENCOUNTER 2022-08-31 13:16 | Outpatient (CLI) | payer MEDICARE ==
--- NOTE | 2022-08-31 14:06 | XRAY Report ---
PROCEDURE: Wrist 3 View LT INDICATIONS: PAIN IN LEFT WRIST TECHNIQUE: 3 views of the wrist were acquired. COMPARISON: None. FINDINGS: Bones: No fractures or dislocations. No suspicious bony lesions. Scaphoid view: Not applicable. Soft tissues: No suspicious soft tissue calcifications or masses. IMPRESSION: No acute bony abnormality. If there is anatomic snuff box tenderness, consider wrist immobilization a nd repeat radiographs in 10-14 days or cross-sectional imaging now. If pain persists with conservativ e management, consider repeat radiographs in 10-14 days or cross-sectional imaging. Reviewed by: Valdemar Alcaraz on 08/31/2022 2:05 PM PDT Approved by: Valdemar Alcaraz on 08/31/2022 2:05 PM PDT Station ID: [id number]
== END 2022-08-31 13:17 | disposition home or self-care (01) ==
LOC: DI 13:16
PROVIDERS: ATTEND Physician Assistant
DX: M25.532 Pain in left wrist (principal)

== ENCOUNTER 2022-11-10 09:35 | Outpatient (CLI) | payer MEDICARE ==
[2022-11-10 12:25] LABS: CALCIUM 9.7 mg/dL (8.5-10.3); CREATININE 0.8 mg/dL (0.4-1.0); POTASSIUM 3.9 mmol/L (3.5-5.0)
[2022-11-10 12:43] LABS: CREATININE,URINE 185.6 mg/dL; MICROALBUM/CREATININE RATIO,UR 130.9 ug/mg (<30.0); MICROALBUMIN,URINE 24.3 mg/dL (0-300.0)
[2022-11-10 12:49] LABS: ESTIMATED AVERAGE GLUCOSE 306 mg/dL (70-100); HEMOGLOBIN A1c% 12.3 % (4.27-6.07)
== END 2022-11-10 09:36 | disposition home or self-care (01) ==
LOC: LAB.N 09:35
PROVIDERS: ATTEND Family Medicine
DX: E11.8 Type 2 diabetes mellitus with unspecified complications (principal)
CPT/HCPCS: 36415; 80048; 82043; 82570; 83036

== ENCOUNTER 2023-02-22 09:26 | Outpatient (CLI) | payer MEDICARE ==
[2023-02-22 12:32] LABS: ESTIMATED AVERAGE GLUCOSE 289 mg/dL (70-100); HEMOGLOBIN A1c% 11.7 % (4.27-6.07)
[2023-02-22 12:54] LABS: CALCIUM 9.7 mg/dL (8.5-10.3); CREATININE 0.8 mg/dL (0.6-1.3); POTASSIUM 4.4 mmol/L (3.5-4.5)
[2023-02-22 13:29] LABS: CREATININE,URINE 188.1 mg/dL; MICROALBUM/CREATININE RATIO,UR 73.4 ug/mg (<30.0); MICROALBUMIN,URINE 13.8 mg/dL
== END 2023-02-22 09:27 | disposition home or self-care (01) ==
LOC: LAB.N 09:26
PROVIDERS: ATTEND Family Medicine
DX: I10 Essential (primary) hypertension (principal); R80.9 Proteinuria, unspecified; E11.8 Type 2 diabetes mellitus with unspecified complications
CPT/HCPCS: 36415; 80048; 82043; 82570; 83036

== ENCOUNTER 2023-03-08 08:00 | Outpatient (CLI) | payer MEDICARE ==
--- NOTE | 2023-03-08 20:13 | XRAY Report ---
PROCEDURE: Ankle 3 View LT INDICATIONS: LEFT ANKLE PAIN TECHNIQUE: 3 views of the ankle were acquired. COMPARISON: None FINDINGS: Bones: No fractures or dislocations. Ankle mortise is normally aligned. No suspicious bony lesions . Large posterior and plantar calcaneal spurs Soft tissues: Unremarkable without significant soft tissue swelling. No radiopaque foreign body. IMPRESSION: Larger posterior and plantar calcaneal spurs. No fracture Reviewed by: Sundeep Cohen MD on 03/08/2023 7:12 PM [email or web address] Approved by: Sundeep Cohen MD on 03/08/2023 7:12 PM AKDT Station ID: [id number]
== END 2023-03-08 23:59 | disposition home or self-care (01) ==
LOC: DI.WOS 08:00
PROVIDERS: ATTEND Physician Assistant Surgical
DX: M77.32 Calcaneal spur, left foot (principal)

== ENCOUNTER 2023-05-30 11:05 | Outpatient (CLI) | payer MEDICARE ==
[2023-05-30 17:48] LABS: BASOPHILS # (AUTO) 0.1 10^3/uL (0.0-0.1); BASOPHILS % (AUTO) 0.8 %; EOSINOPHILS # (AUTO) 0.2 10^3/uL (0.0-0.7); EOSINOPHILS % (AUTO) 2.4 %; HCT - HEMATOCRIT 43.4 % (37.0-47.0); HGB - HEMOGLOBIN 13.9 g/dL (12.0-16.0); LYMPHOCYTES % (AUTO) 36.7 %; MEAN CORPUSCULAR HEMOGLOBIN 26.2 pg (27.0-31.0); MEAN CORPUSCULAR VOLUME 81.7 fL (81.0-99.0); MEAN PLATELET VOLUME 11.1 fL (7.9-10.8); MONOCYTES # (AUTO) 0.4 10^3/uL (0.0-1.0); MONOCYTES % (AUTO) 4.3 %; NEUTROPHILS # (AUTO) 4.6 10^3/uL (1.5-6.6); NEUTROPHILS % (AUTO) 55.3 %; PLT - PLATELET COUNT 250 10^3/uL (130-450); RED BLOOD COUNT 5.31 10^6/uL (4.20-5.40); RED CELL DISTRIBUTION WIDTH 16.4 % (12.0-15.0); WHITE BLOOD COUNT 8.3 x10^3/uL (4.8-10.8)
[2023-05-30 18:09] LABS: ALBUMIN/GLOBULIN RATIO 1.2 (1.0-2.2); ALKALINE PHOSPHATASE 143 IU/L (42-121); ALT ALANINE AMINOTRANSFERASE 52 IU/L (10-60); AST ASPARTATE AMINOTRANSFERASE 59 IU/L (10-42); BILIRUBIN,TOTAL 0.9 mg/dL (0.2-1.0); BUN - BLOOD UREA NITROGEN 19 mg/dL (6-20); CALCIUM 9.8 mg/dL (8.5-10.3); CARBON DIOXIDE - CO2 29 mmol/L (21-32); CHLORIDE 95 mmol/L (101-111); CHOL/HDL RATIO 7.2 (<4.4); CHOLESTEROL 337 mg/dL; CREATININE 0.8 mg/dL (0.6-1.3); GFR - MDRD 71 (>89); GLUCOSE 322 mg/dL (74-104); HDL CHOLESTEROL 47 mg/dL; LDL CHOLESTEROL,CALCULATED 221 mg/dL; LDL/HDL RATIO 4.7 (<4.4); POTASSIUM 4.6 mmol/L (3.5-4.5); SODIUM 133 mmol/L (135-145); TOTAL PROTEIN 7.4 g/dL (6.4-8.9); TRIGLYCERIDES 347 mg/dL (48-352); VLDL CHOLESTEROL 69 mg/dL
[2023-05-30 18:16] LABS: CREATININE,URINE 205.4 mg/dL
[2023-05-30 18:26] LABS: MICROALBUM/CREATININE RATIO,UR 289.7 ug/mg (<30.0); MICROALBUMIN,URINE 59.5 mg/dL
[2023-05-30 18:46] LABS: THYROID STIMULATING HORMONE 55.19 uIU/mL (0.34-5.60)
[2023-05-30 21:40] LABS: ESTIMATED AVERAGE GLUCOSE 324 mg/dL (70-100); HEMOGLOBIN A1c% 12.9 % (4.27-6.07)
== END 2023-05-30 11:06 | disposition home or self-care (01) ==
LOC: LAB.N 11:05
PROVIDERS: ATTEND Family Medicine
DX: I10 Essential (primary) hypertension (principal); M65.272 Calcific tendinitis, left ankle and foot; R80.9 Proteinuria, unspecified; I63.9 Cerebral infarction, unspecified; E78.2 Mixed hyperlipidemia
CPT/HCPCS: 36415; 80053; 80061; 82043; 82570; 83036; 83721; 84439; 84443; 85025

== ENCOUNTER 2023-06-24 11:01 | Outpatient (CLI) | payer MEDICARE ==
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
== END 2023-06-24 11:02 | disposition home or self-care (01) ==
LOC: DI.N 11:01
PROVIDERS: ATTEND Family Medicine
DX: R05.1 Acute cough (principal)

== ENCOUNTER 2023-09-26 12:00 | Outpatient (CLI) | payer MEDICARE ==
[2023-09-26 18:09] LABS: CREATININE 0.9 mg/dL (0.6-1.3); POTASSIUM 4.2 mmol/L (3.5-4.5)
[2023-09-26 18:17] LABS: CREATININE,URINE 38.6 mg/dL; MICROALBUMIN,URINE 8.8 mg/dL
[2023-09-26 21:11] LABS: ESTIMATED AVERAGE GLUCOSE 298 mg/dL (70-100)
== END 2023-09-26 12:01 | disposition home or self-care (01) ==
LOC: LAB.N 12:00
PROVIDERS: ATTEND Family Medicine
DX: R80.9 Proteinuria, unspecified (principal); E66.9 Obesity, unspecified; E78.2 Mixed hyperlipidemia; E11.8 Type 2 diabetes mellitus with unspecified complications
CPT/HCPCS: 36415; 80048; 82043; 82570; 83036

== ENCOUNTER 2023-10-04 14:15 | Outpatient (CLI) | payer MEDICARE ==
[2023-10-04 17:42] LABS: BASOPHILS # (AUTO) 0.1 10^3/uL (0.0-0.1); BASOPHILS % (AUTO) 1.2 %; EOSINOPHILS # (AUTO) 0.2 10^3/uL (0.0-0.7); EOSINOPHILS % (AUTO) 2.5 %; HCT - HEMATOCRIT 43.5 % (37.0-47.0); HGB - HEMOGLOBIN 13.7 g/dL (12.0-16.0); LYMPHOCYTES # (AUTO) 2.9 10^3/uL (1.5-3.5); LYMPHOCYTES % (AUTO) 37.8 %; MEAN CORPUSCULAR HEMOGLOBIN 26.6 pg (27.0-31.0); MEAN CORPUSCULAR HGB CONC 31.5 g/dL (32.0-36.0); MEAN CORPUSCULAR VOLUME 84.5 fL (81.0-99.0); MONOCYTES # (AUTO) 0.4 10^3/uL (0.0-1.0); MONOCYTES % (AUTO) 5.4 %; NEUTROPHILS # (AUTO) 4.1 10^3/uL (1.5-6.6); NEUTROPHILS % (AUTO) 52.8 %; PLT - PLATELET COUNT 237 10^3/uL (130-450); RED BLOOD COUNT 5.15 10^6/uL (4.20-5.40); RED CELL DISTRIBUTION WIDTH 15.5 % (12.0-15.0); WHITE BLOOD COUNT 7.7 x10^3/uL (4.8-10.8)
[2023-10-04 17:56] LABS: ALBUMIN 4.5 g/dL (3.2-5.5); ALBUMIN/GLOBULIN RATIO 1.4 (1.0-2.2); BILIRUBIN,TOTAL 1.3 mg/dL (0.2-1.0); POTASSIUM 4.3 mmol/L (3.5-4.5); TOTAL PROTEIN 7.8 g/dL (6.4-8.9)
== END 2023-10-04 14:30 | disposition home or self-care (01) ==
LOC: LAB.N 14:15
PROVIDERS: ATTEND Physician Assistant Medical
DX: R10.9 Unspecified abdominal pain (principal); R82.81 Pyuria
CPT/HCPCS: 36415; 80053; 85025; 87086

== ENCOUNTER 2023-12-31 12:31 | Outpatient (CLI) | payer OTHER, MEDICARE | END 2023-12-31 23:59 | disposition critical access hospital (66) | LOC: EMS 12:31 | DX: S40.212A Abrasion of left shoulder, initial encounter (principal); V48.5XXA Car driver injured in noncollision transport accident in traffic accident, initial encounter; Y92.414 Local residential or business street as the place of occurrence of the external cause | CPT/HCPCS: A0425; A0429 ==

== ENCOUNTER 2023-12-31 13:07 | Emergency (ER) | payer OTHER, MEDICARE ==
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
[2023-12-31] MEDS: ACETAMINOPHEN 500 MG TABLET PO STA (13:30)
[2023-12-31] MEDS: IBUPROFEN 600 MG TABLET PO STA (13:31)
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
[2023-12-31 15:21] VITALS: BP 147/115; O2SAT 97
== END 2023-12-31 15:14 | disposition home or self-care (01) ==
LOC: ED 13:07
DX: S46.912A Strain of unspecified muscle, fascia and tendon at shoulder and upper arm level, left arm, initial encounter (principal); S16.1XXA Strain of muscle, fascia and tendon at neck level, initial encounter; V48.5XXA Car driver injured in noncollision transport accident in traffic accident, initial encounter; Y92.410 Unspecified street and highway as the place of occurrence of the external cause; I10 Essential (primary) hypertension; E78.00 Pure hypercholesterolemia, unspecified; E11.9 Type 2 diabetes mellitus without complications; E03.9 Hypothyroidism, unspecified; Z79.84 Long term (current) use of oral hypoglycemic drugs; Z79.899 Other long term (current) drug therapy; Z79.82 Long term (current) use of aspirin; Z79.4 Long term (current) use of insulin
CPT/HCPCS: 72125; 73030; 99283; 99284; A9270

== ENCOUNTER 2024-01-24 12:20 | Outpatient (CLI) | payer MEDICARE ==
[2024-01-24 17:58] LABS: BASOPHILS # (AUTO) 0.1 10^3/uL (0.0-0.1); BASOPHILS % (AUTO) 0.9 %; EOSINOPHILS # (AUTO) 0.2 10^3/uL (0.0-0.7); EOSINOPHILS % (AUTO) 2.6 %; HCT - HEMATOCRIT 47.4 % (37.0-47.0); HGB - HEMOGLOBIN 14.8 g/dL (12.0-16.0); LYMPHOCYTES # (AUTO) 2.8 10^3/uL (1.5-3.5); LYMPHOCYTES % (AUTO) 37.2 %; MEAN CORPUSCULAR HEMOGLOBIN 25.7 pg (27.0-31.0); MEAN CORPUSCULAR HGB CONC 31.2 g/dL (32.0-36.0); MEAN CORPUSCULAR VOLUME 82.4 fL (81.0-99.0); MEAN PLATELET VOLUME 12.2 fL (7.9-10.8); MONOCYTES # (AUTO) 0.5 10^3/uL (0.0-1.0); MONOCYTES % (AUTO) 6.1 %; NEUTROPHILS # (AUTO) 3.9 10^3/uL (1.5-6.6); NEUTROPHILS % (AUTO) 53.1 %; PLT - PLATELET COUNT 242 10^3/uL (130-450); RED BLOOD COUNT 5.75 10^6/uL (4.20-5.40); RED CELL DISTRIBUTION WIDTH 14.6 % (12.0-15.0); WHITE BLOOD COUNT 7.4 x10^3/uL (4.8-10.8)
[2024-01-24 18:15] LABS: ALBUMIN 4.1 g/dL (3.2-5.5); ALBUMIN/GLOBULIN RATIO 1.1 (1.0-2.2); ALKALINE PHOSPHATASE 137 IU/L (42-121); ALT ALANINE AMINOTRANSFERASE 47 IU/L (10-60); AST ASPARTATE AMINOTRANSFERASE 42 IU/L (10-42); BILIRUBIN,TOTAL 1.4 mg/dL (0.2-1.0); BUN - BLOOD UREA NITROGEN 17 mg/dL (6-20); CALCIUM 10.1 mg/dL (8.5-10.3); CARBON DIOXIDE - CO2 27 mmol/L (21-32); CHLORIDE 98 mmol/L (101-111); CHOL/HDL RATIO 5.9 (<4.4); CHOLESTEROL 230 mg/dL; CREATININE 0.9 mg/dL (0.6-1.3); GFR - MDRD 62 (>89); GLUCOSE 369 mg/dL (74-104); HDL CHOLESTEROL 39 mg/dL; LDL CHOLESTEROL,CALCULATED 131 mg/dL; LDL/HDL RATIO 3.4 (<4.4); POTASSIUM 4.2 mmol/L (3.5-4.5); SODIUM 132 mmol/L (135-145); TOTAL PROTEIN 7.7 g/dL (6.4-8.9); TRIGLYCERIDES 301 mg/dL; VLDL CHOLESTEROL 60 mg/dL
[2024-01-24 18:16] LABS: THYROID STIMULATING HORMONE 0.53 uIU/mL (0.34-5.60)
[2024-01-24 18:21] LABS: CREATININE,URINE 110.9 mg/dL; MICROALBUM/CREATININE RATIO,UR 110.9 ug/mg (<30.0); MICROALBUMIN,URINE 12.3 mg/dL
[2024-01-24 21:46] LABS: ESTIMATED AVERAGE GLUCOSE 367 mg/dL (70-100); HEMOGLOBIN A1c% 14.4 % (4.27-6.07)
== END 2024-01-24 12:21 | disposition home or self-care (01) ==
LOC: LAB.N 12:20
PROVIDERS: ATTEND Family Medicine
DX: I10 Essential (primary) hypertension (principal); E11.65 Type 2 diabetes mellitus with hyperglycemia; E66.01 Morbid (severe) obesity due to excess calories; R80.9 Proteinuria, unspecified; I63.9 Cerebral infarction, unspecified; E78.2 Mixed hyperlipidemia; E03.9 Hypothyroidism, unspecified
CPT/HCPCS: 36415; 80053; 80061; 82043; 82570; 83036; 83721; 84443; 85025